=== PATIENT | female | born 1980 | race Caucasian/White ===

== ENCOUNTER 2021-04-24 20:36 | Emergency (ER) | payer BC, SELFPAY ==
[2021-04-24 20:56] VITALS: BP 146/101; PULSE 88; RESP 15; TEMP 36.9; O2SAT 98; BMI 31.2
--- NOTE | 2021-04-24 21:24 | W.ED.PSYCH ---
HPI - Psych General: Chief Complaint: Psychiatric Symptoms Stated Complaint: Anxiety Time Seen by Provider: 04/24/21 21:04 Source: patient Limitations: no limitations History of Present Illness: HPI Narrative: 40-year-old female comes in today with complaints of mental distress and paranoia. Patient at this time states that she is fighting with her boyfriend. Patient denies any abuse from her boyfriend. Patient reports that she feels that her boyfriend is watching her and threatening her all the time. When patient tries to talk to her boyfriend he walks away and does not discuss it with her. Patient reports that she sees things on the Internet that seems to always point back towards her boyfriend and believes her may be a conspiracy against her. I discussed this with her that she may feel threatened by him and she is needing to leave the relationship. Patient states that she cannot leave the relationship that he is all that she has but feels that she needs mental health because she does not believe that he can do all these things that she is seeing. Patient does appear to be paranoid and delusional. Patient is seeking admission into the stress unit. Patient smokes cigarettes, patient reports that she does not use any drugs or alcohol. complaint: other (paranoia) Onset (ago): day(s) Duration: constant and getting worse History of same: No Relieving factors: none Exacerbating factors: none Context: not taking psychiatric medications Associated psychiatric symptoms: delusions Associated symptoms: Reports visual hallucinations Review of Systems General: Reports: 10 or more systems reviewed and unremarkable except in HPI and below Psych: Reports: visual hallucinations Physical Exam Const: COMMON NORMALS: no acute distress and patient oriented x3 GENERAL APPEARANCE: cooperative HENMT: COMMON NORMALS: normocephalic and Normal external nose present HEAD & SCALP: normal to inspection and normocephalic NOSE: Normal external nose present MOUTH: Normal oral and palatal mucosa present Eye: GENERAL EYE: appearance normal, both eyes and all related structures Neck/C-Spine: COMMON NORMALS: full ROM Lymph: LYMPHATIC: no lymphadenopathy noted Chest: COMMONS NORMALS: normal inspection of the chest Resp: COMMON NORMALS: normal respiratory effort EFFORT & INSPECTION: Yes able to speak in complete sentences Cardio: COMMON NORMALS: regular rate and regular rhythm RATE: regular rate RHYTHM: regular rhythm GI: COMMON NORMALS: non-tender Back/Pelvis: COMMON NORMALS: thoracic and lumbar spine normal to inspection Extremity: COMMON NORMALS: normal to inspection Neuro: COMMON NORMALS: patient oriented x3 and moves all extremities Psych: COMMON NORMALS: mental status grossly normal and cooperative Skin: COMMON NORMALS: no rashes or lesions noted GENERAL SKIN EXAM: no rashes or lesions noted Course Vital Signs: Vital signs: Vital Signs Temperature 98.4 F 04/24/21 20:56 Pulse Rate 88 04/24/21 20:56 Respiratory Rate 15 04/24/21 20:56 Blood Pressure 146/101 04/24/21 20:56 Pulse Oximetry 98 04/24/21 20:56 MDM - Psych MDM Narrative: Medical decision making narrative: Patient came in today for concerns of paranoia. Patient felt her boyfriend was doing something to intentionally confuse her and make her feel threatened. Exam noted some anxiety and restlessness. On questioning patient denied any drug use. Vital signs are normal. Physical exam was unremarkable. Differential diagnosis includes not limited to acute psychosis, paranoia, substance abuse. Laboratory values were unremarkable. Urine drug screen did show positive for amphetamines. When discussed this with patient she did not deny the use of amphetamines. We did offer to admit patient for her concerns but she decided that she did not want to stay and had found a ride away from her boyfriend. Patient was recommended to follow-up with primary care and to return to the ER as needed. Lab Data: Labs: Lab Results 04/24/21 04/24/21 04/24/21 Range/Units 22:00 22:00 22:00 WBC 9.4 (4.0-10.0) 10^3/ uL RBC 4.97 (4.1-5.3) 10^6/u L Hgb 15.1 (11.5-15.3) g/dL Hct 45.9 (37.0-47.0) % MCV 92.4 (81-99) fL MCH 30.4 (28.0-34.0) pg MCHC 32.9 (30.0-36.0) g/dL RDW 12.7 (12.1-15.1) % Plt Count 319 (130-400) 10^3/c mm MPV 10.3 (7.4-10.4) fL Neut % (Auto) 74.9 % Lymph % (Auto) 18.6 % [place] % (Auto) 5.6 % Eos % (Auto) 0.3 % Baso % (Auto) 0.3 % Neut # (Auto) 7.06 (1.8-7.7) 10^3/u L Lymph # (Auto) 1.8 (0.8-4.8) 10^3/u L [place] # (Auto) 0.5 (0.2-0.9) 10^3/u L Eos # (Auto) 0.0 (0.0-0.8) 10^3/u L Baso # (Auto) 0.0 (0.0-0.1) 10^3/u L Nucleated RBC % (a uto) 0 % Nucleated RBCs # 0.0 /100WBC Sodium 136 (136-145) mmol/L Chloride 101 (98-107) mmol/L Carbon Dioxide 22 (22-29) mmol/L BUN 14 (6-20) mg/dL Creatinine 0.8 (0.5-0.9) mg/dL Glucose 91 (65-115) mg/dL Calcium 8.7 (8.5-10.5) mg/dL Total Bilirubin 0.3 (0.15-1.2) mg/dL Alkaline Phosphata se 80 (35-105) IU/L Total Protein 7.5 (6.6-8.7) g/dL Albumin 4.9 (3.5-5.2) g/dL Globulin 2.6 (1.3-4.6) g/dL TSH 1.71 (0.27-4.20) uIU/ mL HCG, Qual Negative (Negative) Urine Color (Yellow) Urine Appearance (CLEAR) Urine pH (5-7) Ur Specific Gravit y (1.005-1.030) Urine Protein (Negative) Urine Glucose (UA) (Normal) Urine Ketones (Negative) Urine Blood (Negative) Urine Nitrate (Negative) Urine Bilirubin (Negative) Urine Urobilinogen (Negative) mg/dL Ur Leukocyte Yoselyn ase (Negative) Urine RBC (0-2) /hpf Urine WBC (0-5) /hpf Ur Squamous Epith Cells (0-5) /hpf Amorphous Sediment /hpf Urine Bacteria (NONE) /hpf Urine Opiates Scre en (Negative) ng/mL Ur Barbiturates Sc reen (Negative) ng/mL Ur Phencyclidine S crn (Negative) ng/mL Ur Amphetamines Sc reen (Negative) ng/mL U Benzodiazepines Scrn (Negative) ng/mL Urine Cocaine Scre en (Negative) ng/mL U Marijuana (THC) Screen (Negative) ng/mL 04/24/21 04/24/21 Range/Units 22:00 22:00 WBC (4.0-10.0) 10^3/ uL RBC (4.1-5.3) 10^6/u L Hgb (11.5-15.3) g/dL Hct (37.0-47.0) % MCV (81-99) fL MCH (28.0-34.0) pg MCHC (30.0-36.0) g/dL RDW (12.1-15.1) % Plt Count (130-400) 10^3/c mm MPV (7.4-10.4) fL Neut % (Auto) % Lymph % (Auto) % [place] % (Auto) % Eos % (Auto) % Baso % (Auto) % Neut # (Auto) (1.8-7.7) 10^3/u L Lymph # (Auto) (0.8-4.8) 10^3/u L [place] # (Auto) (0.2-0.9) 10^3/u L Eos # (Auto) (0.0-0.8) 10^3/u L Baso # (Auto) (0.0-0.1) 10^3/u L Nucleated RBC % (a uto) % Nucleated RBCs # /100WBC Sodium (136-145) mmol/L Chloride (98-107) mmol/L Carbon Dioxide (22-29) mmol/L BUN (6-20) mg/dL Creatinine (0.5-0.9) mg/dL Glucose (65-115) mg/dL Calcium (8.5-10.5) mg/dL Total Bilirubin (0.15-1.2) mg/dL Alkaline Phosphata se (35-105) IU/L Total Protein (6.6-8.7) g/dL Albumin (3.5-5.2) g/dL Globulin (1.3-4.6) g/dL TSH (0.27-4.20) uIU/ mL HCG, Qual (Negative) Urine Color Yellow (Yellow) Urine Appearance Sl cloudy A (CLEAR) Urine pH 5 (5-7) Ur Specific Gravit y 1.030 (1.005-1.030) Urine Protein Neg (Negative) Urine Glucose (UA) Norm (Normal) Urine Ketones Negative (Negative) Urine Blood Neg (Negative) Urine Nitrate Positive H (Negative) Urine Bilirubin 1+ H (Negative) Urine Urobilinogen Norm (Negative) mg/dL Ur Leukocyte Yoselyn ase 2+ H (Negative) Urine RBC 0-4 H (0-2) /hpf Urine WBC >100 H (0-5) /hpf Ur Squamous Epith Cells 5-10 H (0-5) /hpf Amorphous Sediment 1+ /hpf Urine Bacteria 2+ H (NONE) /hpf Urine Opiates Scre en Negative (Negative) ng/mL Ur Barbiturates Sc reen Negative (Negative) ng/mL Ur Phencyclidine S crn Negative (Negative) ng/mL Ur Amphetamines Sc reen Positive H (Negative) ng/mL U Benzodiazepines Scrn Negative (Negative) ng/mL Urine Cocaine Scre en Negative (Negative) ng/mL U Marijuana (THC) Screen Negative (Negative) ng/mL Discharge Plan Discharge Patient Disposition: Home Clinical Impression: Paranoia, Amphetamine abuse Condition: Stable Discharge Orders: Discharge ED (Routine); Ordered 04/24/21 Ordered By: Sammy Mario Discharge Diet: Usual diet Discharge Activity: Increase activity as tolerated Patient Instructions: Methamphetamine Abuse (ED), Opioid Safety Activity Restrictions/Additional Instructions: Healthy diet and exercise. Follow-up with primary care. Return to the ER for new concerns. 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
[2021-04-24 22:19] LABS: Basophils % 0.3 %; Eosinophils % 0.3 %; Hematocrit 45.9 % (37.0-47.0); Hemoglobin 15.1 g/dL (11.5-15.3); Lymphocytes # 1.8 10^3/uL (0.8-4.8); Lymphocytes % 18.6 %; Mean Corpuscular HGB Conc 32.9 g/dL (30.0-36.0); Mean Corpuscular Hemoglobin 30.4 pg (28.0-34.0); Mean Corpuscular Volume 92.4 fL (81-99); Mean Platelet Volume 10.3 fL (7.4-10.4); Monocytes # 0.5 10^3/uL (0.2-0.9); Monocytes % 5.6 %; Neutrophils # 7.06 10^3/uL (1.8-7.7); Neutrophils % 74.9 %; Nucleated Red Blood Cells % 0 %; Platelet Count 319 10^3/cmm (130-400); Red Blood Count 4.97 10^6/uL (4.1-5.3); Red Cell Distribution Width 12.7 % (12.1-15.1); White Blood Count 9.4 10^3/uL (4.0-10.0)
[2021-04-24 22:20] LABS: HCG Qualitative Urine. Negative (Negative)
[2021-04-24 22:36] LABS: Amphetamines Screen Urine Positive (Negative); Barbiturates Screen Urine Negative (Negative); Benzodiazepines Screen Urine Negative (Negative); Cocaine Screen Urine Negative (Negative); Opiate Screen Urine Negative (Negative); PCP Screen Urine Negative (Negative); THC Screen Urine Negative (Negative)
[2021-04-24 22:47] LABS: Add Urine Microscopic? YES; Bilirubin Urine 1+ (Negative); Blood Urine Neg (Negative); Glucose Urine UA Norm (Normal); Ketones Urine Negative (Negative); Leukocyte Esterase Urine 2+ (Negative); Nitrate Urine Positive (Negative); Protein Urine Neg (Negative); Urine Color Yellow (Yellow); Urobilinogen Urine Norm (Negative); pH Urine 5 (5-7)
[2021-04-24 22:48] LABS: Albumin Level 4.9 g/dL (3.5-5.2); Alkaline Phosphatase 80 IU/L (35-105); Bacteria Urine 2+ /hpf; Blood Urea Nitrogen 14 mg/dL (6-20); Calcium 8.7 mg/dL (8.5-10.5); Carbon Dioxide 22 mmol/L (22-29); Chloride 101 mmol/L (98-107); Globulin 2.6 g/dL (1.3-4.6); Glucose 91 mg/dL (65-115); Osmolality Calculated 282 mOsm/kg (285-295); RBC Urine 0-4 /hpf (0-2); Sodium 136 mmol/L (136-145); Thyroid Stimulating Hormone 1.71 uIU/mL (0.27-4.20); Total Bilirubin 0.3 mg/dL (0.15-1.2); Total Protein 7.5 g/dL (6.6-8.7); WBC Urine >100 /hpf (0-5)
[2021-04-24 22:49] LABS: Add Urine Culture? Yes; Amorphous Sediment Urine 1+ /hpf
[2021-04-24 22:54] LABS: Acetaminophen < 5.0 ug/mL (10-30); Alanine Aminotransferase 12 U/L (0-33); Alcohol Level < 10 mg/dL (0-10); Anion Gap 17.3 (5-19); Aspartate Amino Transferase 17 U/L (0-32); Potassium 4.3 mmol/L (3.5-5.1); Salicylate < 0.3 mg/dL (3-10)
[2021-04-24 23:08] VITALS: BP 138/76; PULSE 76; RESP 18; O2SAT 99
[2021-04-24 23:14] VITALS: BP 137/111; PULSE 90; RESP 16; TEMP 36.7; O2SAT 100
== END 2021-04-24 23:20 | disposition home or self-care (01) ==
PROVIDERS: Emergency Provider Nurse Practitioner Family
DX: F22 Delusional disorders (principal); F15.10 Other stimulant abuse, uncomplicated
CPT/HCPCS: 80053; 80306; 80307; 81001; 81025; 84443; 85025; 87077; 87086; 87186; 99282

== ENCOUNTER 2021-04-27 05:43 | Emergency (ER) | payer BC, MEDICAID, SELFPAY ==
[2021-04-27 05:45] VITALS: BP 166/110; PULSE 85; RESP 17; O2SAT 97; BMI 30.2
--- NOTE | 2021-04-27 06:11 | ED_ITS ---
HPI - Psych General: Chief Complaint: Psychiatric Symptoms Stated Complaint: mhe Time Seen by Provider: 04/27/21 05:46 History of Present Illness: HPI Narrative: 40-year-old female presents emergency room via EMS. Evidently she had anoxic closet and a truck stop gas station overnight. She is convinced her boyfriend is spying on her through her phone and he is downloading things recording things making her see things that are not there. She is fixated on her boyfriend and cell phones. She talks about going through his phone trying to find things about Ms. spelled Internet addresses including Maldivian symbols on her phone. She makes some vague referen ce about her boyfriend telling her she did not have the courage to kill him. She denies any suicidal or homicidal ideation. MD complaint: other Onset (ago): hour(s) Duration: constant History of same: Yes Relieving factors: none Exacerbating factors: none Context: recent drug abuse Associated psychiatric symptoms: none Associated symptoms: Reports no associated symptoms Treatments prior to arrival: none Review of Systems Const: Denies: fever(s), chills, body aches, change in appetite, fatigue or malaise ENMT: Denies: throat pain, ear or mastoid pain, nasal discharge or nasal congestion Card: Denies: chest pain, edema, dyspnea on exertion or orthopnea Resp: Denies: dyspnea, productive cough or non-productive cough GI: Denies: abdominal pain, nausea, vomiting, hematemesis, coffee ground emesis, diarrhea, constipation, bloating, hematochezia or melena : Denies: flank pain, difficulty voiding, dysuria, urinary frequency or urinary urgency Skin/Breast: Denies: rash or pruritus Physical Exam Const: COMMON NORMALS: no acute distress GENERAL APPEARANCE: cooperative and comfortable ORIENTATION/CONSCIOUSNESS: Yes awake, Yes oriented to person, Yes oriented to place and Yes oriented to time HENMT: COMMON NORMALS: normocephalic, atraumatic, hearing grossly normal bilaterally and external ears normal HEAD & SCALP: normocephalic and atraumatic EXTERNAL EAR: Yes external ears normal Neck/C-Spine: COMMON NORMALS: no JVD Resp: COMMON NORMALS: normal respiratory effort, No retractions, No use of accessory muscles and clear to auscultation bilaterally AUSCULTATION: clear to auscultation bilaterally Cardio: COMMON NORMALS: no JVD, regular rate, regular rhythm and No murmurs present (Cardio) RATE: regular rate RHYTHM: regular rhythm GI: COMMON NORMALS: Soft to palpation and No hepatosplenomegaly present AUSCULTATION: Yes normoactive bowel sounds PALPATION: Yes Soft to palpation, No Tenderness to palpation present (GI), No Guarding due to palpation present (GI) and Yes No hepatosplenomegaly present Extremity: COMMON NORMALS: normal to inspection, capillary refill normal, no clubbing, cyanosis or edema, no calf tenderness and no pedal edema Neuro: SENSORIUM/ORIENTATION: Yes oriented to person, Yes oriented to place and Yes oriented to time Skin: COMMON NORMALS: no rashes or lesions noted GENERAL SKIN EXAM: no rashes or lesions noted Course Vital Signs: Vital signs: Vital Signs Pulse Rate 80 04/27/21 08:23 Respiratory Rate 17 04/27/21 05:45 Blood Pressure 135/100 04/27/21 08:23 Pulse Oximetry 99 04/27/21 08:23 MDM - Psych MDM Narrative: Medical decision making narrative: Still no suicidal homicidal ideation. She has some paranoid type issues with her boyfriend which I think are probably induced by her methamphetamine use she did admit to using yesterday. We will get a go ahead and discharge her we will set her up for referral to [facility]. She continues to deny any suicidal homicidal ideation she is not having having any active psychosis at this time. Lab Data: Labs: Lab Results 04/27/21 04/27/21 04/27/21 Range/Units 06:20 06:20 07:25 WBC 6.2 (4.0-10.0) 10^3/ uL RBC 4.88 (4.1-5.3) 10^6/u L Hgb 14.9 (11.5-15.3) g/dL Hct 45.5 (37.0-47.0) % MCV 93.2 (81-99) fL MCH 30.5 (28.0-34.0) pg MCHC 32.7 (30.0-36.0) g/dL RDW 12.6 (12.1-15.1) % Plt Count 269 (130-400) 10^3/c mm MPV 9.6 (7.4-10.4) fL Neut % (Auto) 62.5 % Lymph % (Auto) 28.9 % [place] % (Auto) 7.0 % Eos % (Auto) 0.8 % Baso % (Auto) 0.5 % Neut # (Auto) 3.85 (1.8-7.7) 10^3/u L Lymph # (Auto) 1.8 (0.8-4.8) 10^3/u L [place] # (Auto) 0.4 (0.2-0.9) 10^3/u L Eos # (Auto) 0.1 (0.0-0.8) 10^3/u L Baso # (Auto) 0.0 (0.0-0.1) 10^3/u L Nucleated RBC % (a uto) 0 % Nucleated RBCs # 0.0 /100WBC Sodium 135 L (136-145) mmol/L Potassium 3.5 (3.5-5.1) mmol/L Chloride 100 (98-107) mmol/L Carbon Dioxide 23 (22-29) mmol/L Anion Gap 15.5 (5-19) BUN 12 (6-20) mg/dL Creatinine 0.7 (0.5-0.9) mg/dL GFR Calculation 92.2 (90-130) mL/min Glucose 91 (65-115) mg/dL Calculated Osmolal ity 279 L (285-295) mOsm/k g Calcium 8.8 (8.5-10.5) mg/dL Total Bilirubin 0.5 (0.15-1.2) mg/dL AST 15 (0-32) U/L ALT 11 (0-33) U/L Alkaline Phosphata se 72 (35-105) IU/L Total Protein 7.6 (6.6-8.7) g/dL Albumin 4.2 (3.5-5.2) g/dL Globulin 3.4 (1.3-4.6) g/dL HCG, Qual Negative (Negative) Salicylates < 0.3 L (3-10) mg/dL Urine Opiates Scre en (Negative) ng/mL Acetaminophen < 5.0 L (10-30) ug/mL Ur Barbiturates Sc reen (Negative) ng/mL Ur Phencyclidine S crn (Negative) ng/mL Ur Amphetamines Sc reen (Negative) ng/mL U Benzodiazepines Scrn (Negative) ng/mL Urine Cocaine Scre en (Negative) ng/mL U Marijuana (THC) Screen (Negative) ng/mL 04/27/21 Range/Units 07:25 WBC (4.0-10.0) 10^3/ uL RBC (4.1-5.3) 10^6/u L Hgb (11.5-15.3) g/dL Hct (37.0-47.0) % MCV (81-99) fL MCH (28.0-34.0) pg MCHC (30.0-36.0) g/dL RDW (12.1-15.1) % Plt Count (130-400) 10^3/c mm MPV (7.4-10.4) fL Neut % (Auto) % Lymph % (Auto) % [place] % (Auto) % Eos % (Auto) % Baso % (Auto) % Neut # (Auto) (1.8-7.7) 10^3/u L Lymph # (Auto) (0.8-4.8) 10^3/u L [place] # (Auto) (0.2-0.9) 10^3/u L Eos # (Auto) (0.0-0.8) 10^3/u L Baso # (Auto) (0.0-0.1) 10^3/u L Nucleated RBC % (a uto) % Nucleated RBCs # /100WBC Sodium (136-145) mmol/L Potassium (3.5-5.1) mmol/L Chloride (98-107) mmol/L Carbon Dioxide (22-29) mmol/L Anion Gap (5-19) BUN (6-20) mg/dL Creatinine (0.5-0.9) mg/dL GFR Calculation (90-130) mL/min Glucose (65-115) mg/dL Calculated Osmolal ity (285-295) mOsm/k g Calcium (8.5-10.5) mg/dL Total Bilirubin (0.15-1.2) mg/dL AST (0-32) U/L ALT (0-33) U/L Alkaline Phosphata se (35-105) IU/L Total Protein (6.6-8.7) g/dL Albumin (3.5-5.2) g/dL Globulin (1.3-4.6) g/dL HCG, Qual (Negative) Salicylates (3-10) mg/dL Urine Opiates Scre en Negative (Negative) ng/mL Acetaminophen (10-30) ug/mL Ur Barbiturates Sc reen Negative (Negative) ng/mL Ur Phencyclidine S crn Negative (Negative) ng/mL Ur Amphetamines Sc reen Positive H (Negative) ng/mL U Benzodiazepines Scrn Negative (Negative) ng/mL Urine Cocaine Scre en Negative (Negative) ng/mL U Marijuana (THC) Screen Negative (Negative) ng/mL Discharge Plan Discharge Patient Disposition: Home Clinical Impression: Amphetamine abuse, Paranoia Condition: Stable Prescriptions: No Action No Known Home Medications RF: 0 Discharge Orders: Discharge ED (Routine); Ordered 04/27/21 Ordered By: Murali Marion Discharge Diet: Usual diet Discharge Activity: Increase activity as tolerated Patient Instructions: Opioid Safety Activity Restrictions/Additional Instructions: Case management will supply contact information for [facility] Coding Level of Care Code ED Program Paraprofessional for Estuardo Fwd Exam Comprehensive
[2021-04-27 06:23] LABS: Basophils % 0.5 %; Eosinophils # 0.1 10^3/uL (0.0-0.8); Eosinophils % 0.8 %; Hematocrit 45.5 % (37.0-47.0); Hemoglobin 14.9 g/dL (11.5-15.3); Lymphocytes # 1.8 10^3/uL (0.8-4.8); Lymphocytes % 28.9 %; Mean Corpuscular HGB Conc 32.7 g/dL (30.0-36.0); Mean Corpuscular Hemoglobin 30.5 pg (28.0-34.0); Mean Corpuscular Volume 93.2 fL (81-99); Mean Platelet Volume 9.6 fL (7.4-10.4); Monocytes # 0.4 10^3/uL (0.2-0.9); Neutrophils # 3.85 10^3/uL (1.8-7.7); Neutrophils % 62.5 %; Nucleated Red Blood Cells % 0 %; Platelet Count 269 10^3/cmm (130-400); Red Blood Count 4.88 10^6/uL (4.1-5.3); Red Cell Distribution Width 12.6 % (12.1-15.1); White Blood Count 6.2 10^3/uL (4.0-10.0)
[2021-04-27 06:39] LABS: Alanine Aminotransferase 11 U/L (0-33); Albumin Level 4.2 g/dL (3.5-5.2); Alkaline Phosphatase 72 IU/L (35-105); Anion Gap 15.5 (5-19); Aspartate Amino Transferase 15 U/L (0-32); Blood Urea Nitrogen 12 mg/dL (6-20); Calcium 8.8 mg/dL (8.5-10.5); Carbon Dioxide 23 mmol/L (22-29); Chloride 100 mmol/L (98-107); Globulin 3.4 g/dL (1.3-4.6); Glomerular Filtration Rate 92.2 mL/min (90-130); Glucose 91 mg/dL (65-115); Osmolality Calculated 279 mOsm/kg (285-295); Potassium 3.5 mmol/L (3.5-5.1); Sodium 135 mmol/L (136-145); Total Bilirubin 0.5 mg/dL (0.15-1.2); Total Protein 7.6 g/dL (6.6-8.7)
[2021-04-27 06:44] LABS: Acetaminophen < 5.0 ug/mL (10-30); Salicylate < 0.3 mg/dL (3-10)
[2021-04-27 07:52] LABS: HCG Qualitative Urine. Negative (Negative)
[2021-04-27 07:59] LABS: Amphetamines Screen Urine Positive (Negative); Barbiturates Screen Urine Negative (Negative); Benzodiazepines Screen Urine Negative (Negative); Cocaine Screen Urine Negative (Negative); Opiate Screen Urine Negative (Negative); PCP Screen Urine Negative (Negative); THC Screen Urine Negative (Negative)
[2021-04-27 08:23] VITALS: BP 135/100; PULSE 80; O2SAT 99
--- NOTE | 2021-04-27 09:25 | DCPLANNER ---
insurance manager had message to speak with patient about services at [facility]. insurance manager called phone number [phone], unable to speak with patient at this time, a voicemail was left for patient to return family caseworker phone call.
== END 2021-04-27 08:25 | disposition home or self-care (01) ==
PROVIDERS: Emergency Medicine; Emergency Provider Family Medicine
DX: F15.10 Other stimulant abuse, uncomplicated (principal); F22 Delusional disorders
CPT/HCPCS: 80053; 80306; 80307; 81025; 85025; 99283

== ENCOUNTER 2021-04-28 00:35 | Inpatient (IN) | payer BC, MEDICAID, SELFPAY ==
[2021-04-28 00:37] VITALS: BP 151/107; PULSE 93; RESP 17; TEMP 36.7; O2SAT 100; BMI 30.2
--- NOTE | 2021-04-28 00:59 | W.ED.PSYCH ---
HPI - Psych General: Chief Complaint: Psychiatric Symptoms Stated Complaint: PARANOID Time Seen by Provider: 04/28/21 00:45 History of Present Illness: HPI Narrative: Patient states she did not feel safe around her boyfriend states that she needs help that there is things going on her mind that she cannot control and she need to be admitted to the hospital. She cannot make an outpatient therapy appointment. Patient states she is suicidal. Patient does not have a plan. Patient has been seen here twice recently for symptoms of paranoia. complaint: suicidal ideation Onset (ago): day(s) Duration: constant and getting worse History of same: No Relieving factors: none Exacerbating factors: drug use Context: recent drug abuse (It has been a week and a half since she has done meth) Associated psychiatric symptoms: suicidal ideation Associated symptoms: Reports suicidal ideation (States that she wants to kill herself she cannot go on like this); Deny depression If self harm: admits thoughts of self harm Review of Systems Const: Denies: fever(s), chills or body aches Eyes: Denies: change in vision or blurry vision ENMT: Denies: throat pain or nasal congestion Card: Denies: chest pain or dyspnea on exertion Resp: Denies: dyspnea, productive cough or non-productive cough GI: Denies: abdominal pain, nausea or vomiting Musc: Denies: extremity pain Skin/Breast: Denies: rash Neuro: Denies: headache(s) Psych: Reports: anxiety (Patient does appear paranoid), paranoia (His boyfriend is hacking her phone. Has had 2 visits for this) and suicidal ideation (States that she wants to kill herself she cannot go on like this); Denies: depression Ad/Lymph: Denies: easy bruising Physical Exam Const: COMMON NORMALS: no acute distress, average body habitus and patient oriented x3 GENERAL APPEARANCE: well kempt HENMT: COMMON NORMALS: normocephalic HEAD & SCALP: normal to inspection and normocephalic FACE & SINUS: normal facial exam Eye: COMMON NORMALS: conjunctivae normal GENERAL EYE: appearance normal, both eyes and all related structures CONJUNCTIVA: Yes conjunctivae normal Neck/C-Spine: COMMON NORMALS: no JVD Chest: COMMONS NORMALS: normal inspection of the chest Resp: COMMON NORMALS: normal respiratory effort and clear to auscultation bilaterally AUSCULTATION: clear to auscultation bilaterally Cardio: COMMON NORMALS: no JVD, regular rate and regular rhythm RATE: regular rate RHYTHM: regular rhythm GI: COMMON NORMALS: Normal to inspection, nondistended, normoactive bowel sounds present Extremity: COMMON NORMALS: normal to inspection and full ROM Neuro: COMMON NORMALS: patient oriented x3 Psych: COMMON NORMALS: mental status grossly normal and speech normal APPEARANCE: Yes well kempt ATTITUDE: Yes paranoid (Patient states that boyfriend is trying to hack into her phone or has hacke) ACTIVITY/MOTOR BEHAVIOR: Yes appropriate eye contact SPEECH: Yes normal speech MOOD & AFFECT: Yes anxious THOUGHT CONTENT: Yes Suicidality present ATTENTION/CONCENTRATION: Yes attention grossly intact MEMORY/COGNITION: Yes memory grossly intact INSIGHT: Fair insight present (Psych) JUDGEMENT: Fair judgement present (Psych) Course Vital Signs: Vital signs: Vital Signs Temperature 98.1 F 04/28/21 00:37 Pulse Rate 93 04/28/21 00:37 Respiratory Rate 17 04/28/21 00:37 Blood Pressure 151/107 04/28/21 00:37 Pulse Oximetry 100 04/28/21 00:37 MDM - Psych MDM Narrative: Medical decision making narrative: I spoke with Dr. Rush he agrees accept the patient for admission Discharge Plan Discharge Patient Disposition: Admitted As Inpatient Admit Provider: Mayda Rush Clinical Impression: Amphetamine abuse, Acute psychosis, Suicidal ideation Condition: Stable Coding Level of Care Code ED News Clipping Cutter for Chg Fwd Exam Comprehensive
[2021-04-28] MEDS: LORazepam 2 mg Tablet PO (01:06)
[2021-04-28 01:41] VITALS: BP 151/107; PULSE 71; RESP 17; TEMP 36.7; O2SAT 100
[2021-04-28 01:46] VITALS: BP 151/107; PULSE 71; RESP 17; TEMP 36.7; O2SAT 100
[2021-04-28 01:47] VITALS: BP 118/83; PULSE 78; RESP 17; TEMP 36.6; O2SAT 94
--- NOTE | 2021-04-28 01:51 | PC.NURSE ---
New admit 131 bed 1 Lexus Egan Size large scrubs. 40/F SI/paranoid +Meth Patient states she did not feel safe around her boyfriend states that she needs help that there is things going on her mind that she cannot control and she need to be admitted to the hospital. She cannot make an outpatient therapy appointment. Patient states she is suicidal. Patient does not have a plan. Patient has been seen here twice recently for symptoms of paranoia. Paranoid, found in [employer] employee closet, hid from her controlling boyfriends friends who were mad at her. She spent several hours in the closet until found by employee, transported to ED via EMS. Lives with Boyfriend in [place], [place] [facility] [place] Went back to this man.
--- NOTE | 2021-04-28 01:52 | PC.NURSE ---
admission 131 bed 1 [employer] E[employer] Size large scrubs. 40/F SI/paranoid +Meth Given 2mg PO ativan prior to admission to unit. Patient states she did not feel safe around her boyfriend states that she needs help that there is things going on her mind that she cannot control and she need to be admitted to the hospital. She cannot make an outpatient therapy appointment. Patient states she is suicidal. Patient does not have a plan. Patient has been seen here twice recently for symptoms of paranoia. Pt found in [employer] employee closet, hid from her controlling boyfriends friends who were mad at her. She spent several hours in the closet until found by employee, transported to ED via EMS. Lives with Boyfriend in [place], [facility] [place] Went back to this man.
--- NOTE | 2021-04-28 02:06 | PC.NURSE ---
Poison SHAINA on right arm noted, rash from hand to elbow, from hiding in bushes and made contact, pt states, it does not itch right now, consideration for physician consult.
--- NOTE | 2021-04-28 10:56 | PM.NHP ---
Providers/Chief Complaint Admitting Physician: Mayda Rush DO Chief Complaint: PARANOID HPI NPU History of Present Illness Lexus Egan is a 40 year old female with remote history of being treated for depression at age 19 presented to the emergency department twice in the last few days with substance-induced psychotic symptoms most recently presenting with paranoia in the context of positive urine drug screen for amphetamines although she reports last use being greater then 72 hours ago continues to have a positive urine drug screen from amphetamines. She states that she had been using methamphetamine on a daily basis for several weeks prior to discontinuing a few days ago. Patient was also reportedly suicidal while she was in the emergency department but currently denying any suicidal ideation and denying any depressive symptoms. Patient continues to report ideas of reference saying that her boyfriend was putting things on her phone that were referring to arguments that they had had about various topics. Patient states that she had been having auditory and visual hallucinations but denies any current perceptual disturbances. Psychiatric review of systems is otherwise negative. Patient states that she has not been to any substance rehabilitation in many years but reports being interested in residential substance treatment. Review of Systems General: Reports: 10 or more systems reviewed and unremarkable except in HPI and below Meds NPU Home Medications Medication Instructions Recorded Confirmed Last Taken Type No Known Home Medications 04/27/21 04/28/21 Unknown History Allergies Allergy/AdvReac Type Severity Reaction Status Date / Time No Known Allergies Allergy Verified 04/28/21 01:54 [facility] NPU Other Psychiatric History: Other Psychiatric History: Reports being treated for depression by her primary care 20 years ago with an antidepressant with no subsequent use Denies any history of psychiatric hospitalization Denies any history of suicide attempt or self-harm behavior Mental Status Exam MSE Comments: Appears older than stated age, multiple tattoos on exposed skin, appropriately dressed in hospital scrubs, calm, cooperative, interactive, good eye contact Psychomotor activity is neither increased or decreased, no agitation Speech is normal rate and volume, spontaneous, clear articulation, not pressured I feel okay, tired, full range of affect, not labile Alert and oriented to person, place, time, situation Memory and concentration appear to be intact per interview Intellectual functioning appears to be average at best based on vocabulary, interview Thought process, linear, no flight of ideas, no looseness of associations Thought content, some overvalued ideas with paranoid theme, no delusions stated, does not appear to be attending to any internal stimuli, no suicidal or homicidal ideation Insight and judgment appear to be fair to intact Vitals/I&O/Wt Last Vital Signs Temp 97.9 F 04/28/21 01:47 Pulse 78 04/28/21 01:47 Resp 17 04/28/21 01:47 BP 118/83 04/28/21 01:47 Pulse Ox 94 04/28/21 01:47 Weight last 48 hrs Weight 72.575 kg A&P Assessment and plan (1) Amphetamine-induced psychotic disorder: Status: Acute Qualifiers: Complication of substance-induced condition: with delusions Qualified Code(s): F15.950 - Other stimulant use, unspecified with stimulant-induced psychotic disorder with delusions (2) Amphetamine abuse: Status: Acute (3) Suicidal ideation: Status: Acute Additional A&P Information Patient had presented to the emergency department a few days prior with amphetamine intoxication and most recently presenting now with reported suicidal ideation in the context of amphetamine intoxication with reports of psychotic symptoms in the context of ongoing, daily amphetamine use. Patient would benefit from observation with coordination for post discharge substance rehab. INVOLUNTARY ADMIT to inpatient psychiatry for observation for any persisting suicidal ideation or suicidal behavior Coordinate with clinical social work aide for post discharge substance rehabilitation Involuntary Hold Information 96 Hour Hold: 96 Hour Involuntary Admission: Yes 96 Hour Hold Ending Date: 05/04/21 96 Hour Hold Ending Time: 01:16 Attestations NPU Medical Necessity Statement*: Psychiatric hospitalization indicated for recent suicidal ideation and observation for any ongoing suicidal ideation or behavior, coordination for safe discharge Anticipate hospital stay to exceed 2 midnights Time Spent in Patient Care: Greater than 35 minutes (>than 50% of time spent in counselling and/or direct pt care on unit). 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
[2021-04-28 14:00] VITALS: BP 118/83; PULSE 78; RESP 17; TEMP 36.6; O2SAT 94
[2021-04-28 15:17] LABS: Urine Appearance Hazy (CLEAR); Urine Color Yellow (Yellow); pH Urine 7 (5-7)
[2021-04-28 15:18] LABS: Add Urine Microscopic? YES; Bilirubin Urine Neg (Negative); Blood Urine Neg (Negative); Glucose Urine UA Norm (Normal); Ketones Urine Negative (Negative); Leukocyte Esterase Urine 1+ (Negative); Nitrate Urine Negative (Negative); Protein Urine Neg (Negative); Specific Gravity, Urine 1.015 (1.005-1.030); Urobilinogen Urine Norm (Negative)
[2021-04-28 15:24] LABS: Add Urine Culture? Yes; Bacteria Urine 2+ /hpf; Squamous Epithelial Cell Urine 0-4 /hpf (0-5); WBC Urine 25-40 /hpf (0-5)
[2021-04-28 21:35] VITALS: BP 123/84; PULSE 87; RESP 18; TEMP 36.8; O2SAT 99
[2021-04-29 06:00] VITALS: BP 106/77; PULSE 80; RESP 16; TEMP 36.4; O2SAT 99
[2021-04-29] MEDS: citalopram 20 mg Tablet 10 MG PO (13:16)
[2021-04-29 13:24] LABS: Add Urine Microscopic? YES; Bilirubin Urine Neg (Negative); Blood Urine Neg (Negative); Glucose Urine UA Norm (Normal); Ketones Urine Negative (Negative); Leukocyte Esterase Urine 1+ (Negative); Nitrate Urine Negative (Negative); Protein Urine Neg (Negative); Urine Color Yellow (Yellow); Urobilinogen Urine Norm (Negative); pH Urine 6 (5-7)
[2021-04-29 13:33] LABS: Bacteria Urine 2+ /hpf; RBC Urine 0-4 /hpf (0-2); Squamous Epithelial Cell Urine 0-4 /hpf (0-5); WBC Urine >100 /hpf (0-5)
[2021-04-29 13:34] LABS: Urine Appearance Hazy (CLEAR)
[2021-04-29 13:35] LABS: Add Urine Culture? Yes
[2021-04-29 14:00] VITALS: BP 115/83; PULSE 83; RESP 18; TEMP 36.2; O2SAT 99
--- NOTE | 2021-04-29 14:08 | P.PN_ITS ---
Subjective NPU Subjective: Interval history: Patient reports some depressive symptoms and becomes tearful during interview stating that nobody wants me. She denies any suicidal ideation She denies any psychotic symptoms, denies any paranoid delusions per previous conversation Reports being compliant with medication and denies any medication side effects Discussed positive UA for UTI, she denies any hesitancy, any dysuria or hematuria Reports sleeping well and that her appetite is improving Mental Status Exam MSE Comments: Sitting on her bed, calm, cooperative, occasionally tearful, good eye contact, appropriately groomed in hospital scrubs Psychomotor activity is somewhat decreased, no agitation Speech is normal rate and volume, spontaneous, clear articulation, not pressured I feel that, full range of affect, occasionally tearful during interview, not labile Alert and oriented to person, place, time, situation Memory and concentration appear to be intact per interview Thought process, linear, no flight of ideas, no looseness of associations Thought content, no delusions, no hallucinations, no suicidal or homicidal ideation Insight and judgment appear to be fair to intact Vitals/I&O/Wt Last Vital Signs Temp 97.5 F L 04/29/21 06:00 Pulse 80 04/29/21 06:00 Resp 16 04/29/21 06:00 BP 106/77 04/29/21 06:00 Pulse Ox 99 04/29/21 06:00 Weight last 48 hrs Weight 72.575 kg Data NPU Micro: Microbiology 04/28/21 14:48 Urine Culture - Preliminary Urine,Clean Catch Staphylococcus aureus Microbiology 04/28/21 14:48 Urine,Clean Catch Urine Culture - Preliminary Staphylococcus aureus A&P Assessment and plan (1) Suicidal ideation: Status: Acute (2) Amphetamine-induced psychotic disorder: Status: Acute Qualifiers: Complication of substance-induced condition: with delusions Qualified Code(s): F15.950 - Other stimulant use, unspecified with stimulant-induced psychotic disorder with delusions (3) Depressive disorder: Status: Acute (4) Urinary tract infection: Status: Acute Additional A&P Information Emotionally labile, tearful, denies any urinary symptoms but has had 2 UAs with positive markers for UTI and would likely benefit from empirical treatment START Bactrim DS twice daily for 7 days for UTI START citalopram 10 mg daily targeting depressive symptoms Involuntary Hold Information 96 Hour Hold: 96 Hour Involuntary Admission: Yes 96 Hour Hold Ending Date: 05/04/21 96 Hour Hold Ending Time: 01:16 Attestations NPU Medical Necessity Statement*: Continues to require psychiatric hospitalization for medication stabilization Coding Level of Care Code Acute 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
[2021-04-29 14:16] VITALS: BMI 30.2
[2021-04-29] MEDS: hydrocortisone 1% cream 28 gm 1 APPLIC TOPICAL ×2 (14:24→21:49)
[2021-04-29] MEDS: sulfamethoxazole-trimeth DS 160-800 mg Tablet 1 TAB PO ×2 (14:24→21:49)
[2021-04-29] MEDS: diphenhydrAMINE 25 mg Capsule PO ×2 (14:24→21:49)
[2021-04-29 22:00] VITALS: BP 116/77; PULSE 73; RESP 16; TEMP 36.3; O2SAT 98
[2021-04-30 06:00] VITALS: BP 112/72; PULSE 78; RESP 17; TEMP 36.7; O2SAT 97
[2021-04-30] MEDS: sulfamethoxazole-trimeth DS 160-800 mg Tablet 1 TAB PO ×2 (09:00→21:21)
[2021-04-30] MEDS: citalopram 20 mg Tablet 10 MG PO (09:01)
--- NOTE | 2021-04-30 13:13 | P.PN_ITS ---
Subjective NPU Subjective: Interval history: Patient continues to have paranoid overvalued ideas about her boyfriend spying on her and watching her through her phone Reports intermittent mood symptoms, depressive symptoms but denies any interval suicidal ideation Patient reports her appetite has been good States that her sleep has been fair to good, feels rested Patient states that she feels frustrated about her current living situation and about her follow-up plans post discharge Mental Status Exam MSE Comments: Sitting on her bed, calm, cooperative, appropriately groomed in hospital scrubs, fair to good eye contact Psychomotor activity is somewhat decreased, no agitation Speech is normal rate and volume, spontaneous, clear articulation, not pressured Okay, full range of affect, not labile Alert and oriented to person, place, time, situation Memory and concentration appear to be intact per interview Thought process, linear, no flight of ideas, no looseness of associations Thought content, no delusions, no hallucinations, no suicidal or homicidal ideation Insight and judgment appear to be fair to intact Vitals/I&O/Wt Last Vital Signs Temp 98.0 F 04/30/21 06:00 Pulse 78 04/30/21 06:00 Resp 17 04/30/21 06:00 BP 112/72 04/30/21 06:00 Pulse Ox 97 04/30/21 06:00 Weight last 48 hrs Weight 72.575 kg Data NPU Micro: Microbiology 04/29/21 13:00 Urine Culture - Preliminary Urine,Clean Catch Staphylococcus aureus 04/28/21 14:48 Urine Culture - Final Urine,Clean Catch Staphylococcus aureus Microbiology 04/29/21 13:00 Urine,Clean Catch Urine Culture - Preliminary Staphylococcus aureus 04/28/21 14:48 Urine,Clean Catch Urine Culture - Final Staphylococcus aureus A&P Assessment and plan (1) Suicidal ideation: Status: Acute (2) Depressive disorder: Status: Acute (3) Amphetamine-induced psychotic disorder: Status: Acute Qualifiers: Complication of substance-induced condition: with delusions Qualified Code(s): F15.950 - Other stimulant use, unspecified with stimulant-induced psychotic disorder with delusions (4) Urinary tract infection: Status: Acute (5) Amphetamine abuse: Status: Acute Additional A&P Information Improving, continues to have paranoid ideation and concerns about returning home CONTINUE current medication, continue to monitor Involuntary Hold Information 96 Hour Hold: 96 Hour Involuntary Admission: Yes 96 Hour Hold Ending Date: 05/04/21 96 Hour Hold Ending Time: 01:16 Attestations NPU Medical Necessity Statement*: Continues to require psychiatric hospitalization for medication stabilization Coding Level of Care Code Acute 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
[2021-04-30 14:00] VITALS: BP 112/72; PULSE 78; RESP 17; TEMP 36.7; O2SAT 97
[2021-04-30] MEDS: hydrocortisone 1% cream 28 gm 1 APPLIC TOPICAL (14:17)
[2021-04-30 16:00] VITALS: BP 97/74; PULSE 80; RESP 18; TEMP 36.2; O2SAT 97
[2021-04-30 19:46] VITALS: BP 109/72; PULSE 85; RESP 17; TEMP 36.7; O2SAT 98
[2021-04-30] MEDS: diphenhydrAMINE 25 mg Capsule PO (21:25)
[2021-04-30] MEDS: trazodone 50 mg Tablet PO (21:25)
--- NOTE | 2021-04-30 21:30 | PC.NURSE ---
pt given benadryl 25 mg for itching of her poison sasha and trazodone 50mg po for sleep aide.
--- NOTE | 2021-05-01 03:56 | PC.NURSE ---
pt resting quietly with both eyes closed.
[2021-05-01 06:00] VITALS: BP 104/66; PULSE 87; RESP 18; TEMP 36.7; O2SAT 98
[2021-05-01] MEDS: sulfamethoxazole-trimeth DS 160-800 mg Tablet 1 TAB PO ×2 (09:10→20:31)
[2021-05-01] MEDS: citalopram 20 mg Tablet 10 MG PO (09:11)
--- NOTE | 2021-05-01 11:45 | P.PN_ITS ---
Subjective NPU Subjective: Interval history: Reports improvement in paranoia, currently denying any paranoid delusions, continues to have paranoid overvalued idea with regards to her phone Reports improved mood symptoms, intermittent depressive symptoms but denies any interval suicidal ideation Patient reports her appetite has been good States that her sleep has been fair to good, feels rested Mental Status Exam MSE Comments: Initially lying on her bed but eventually sitting up for interview, polite, interactive, good eye contact, appropriately groomed in hospital scrubs Psychomotor activity is neither increased nor decreased, no agitation Speech is normal rate and volume, spontaneous, clear articulation, not pressured Pretty good, full range of affect, not labile Alert and oriented to person, place, time, situation Memory and concentration appear to be intact per interview Thought process, linear, no flight of ideas, no looseness of associations Thought content, no delusions, no hallucinations, no suicidal or homicidal ideation Insight and judgment appear to be fair to intact Vitals/I&O/Wt Last Vital Signs Temp 98.0 F 05/01/21 06:00 Pulse 87 05/01/21 06:00 Resp 18 05/01/21 06:00 BP 104/66 05/01/21 06:00 Pulse Ox 98 05/01/21 06:00 Weight last 48 hrs Weight 72.575 kg Weight 72.575 kg Data NPU Micro: Microbiology 04/29/21 13:00 Urine Culture - Final Urine,Clean Catch Staphylococcus aureus 04/28/21 14:48 Urine Culture - Final Urine,Clean Catch Staphylococcus aureus Microbiology 04/29/21 13:00 Urine,Clean Catch Urine Culture - Final Staphylococcus aureus 04/28/21 14:48 Urine,Clean Catch Urine Culture - Final Staphylococcus aureus A&P Assessment and plan (1) Suicidal ideation: Status: Acute (2) Depressive disorder: Status: Acute (3) Amphetamine-induced psychotic disorder: Status: Acute Qualifiers: Complication of substance-induced condition: with delusions Qualified Code(s): F15.950 - Other stimulant use, unspecified with stimulant-induced psychotic disorder with delusions (4) Urinary tract infection: Status: Acute (5) Amphetamine abuse: Status: Acute Additional A&P Information Improving CONTINUE current medication, continue to monitor Coordinate with pediatric social worker for post discharge mental health care follow-up, substance counseling Involuntary Hold Information 96 Hour Hold: 96 Hour Involuntary Admission: Yes 96 Hour Hold Ending Date: 05/04/21 96 Hour Hold Ending Time: 01:16 Attestations NPU Medical Necessity Statement*: Continues to require psychiatric hospitalization for medication stabilization, coordination for safe discharge Coding Level of Care Code Acute Administrative Library 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
--- NOTE | 2021-05-01 12:10 | PC.NURSE ---
Addendum entered by Yari Kilgore RN 05/01/21 14:28: Patient currently resting. No signs of itching noted. Original Note: Patient up at nurses station requesting some benadryl for her itching. Benadryl administered.
[2021-05-01] MEDS: diphenhydrAMINE 25 mg Capsule PO ×2 (12:16→20:30)
[2021-05-01 13:47] VITALS: BP 104/66; PULSE 87; RESP 18; TEMP 37; O2SAT 98
[2021-05-01] MEDS: trazodone 50 mg Tablet PO (20:29)
[2021-05-01 20:57] VITALS: BP 111/80; PULSE 72; RESP 19; TEMP 36.6; O2SAT 98
--- NOTE | 2021-05-01 21:48 | PC.NURSE ---
Patient has systemic poison Dee. Has been taking Benadryl 25mg PO and topical Hydrocortisone cream. This treatment has been minimally effective in relieving her Itching and discomfort. Areas of raised blistering skin rash. Patient requesting Solumedrol dose pack or something to slow spreading and itching. Will call Dr Rush to request.
--- NOTE | 2021-05-01 22:20 | PC.NURSE ---
pt requested sleeping med to be given with HS scheduled med. Trazodone 50mg po given. Dr Rush contacted concerning pt s on going poison sasha not relieved by benadryl 25mg po. Order received to consult hospitalist, Dr Aranda ordered prednisone 40mg po one time. Order noted.
[2021-05-01] MEDS: predniSONE 20 mg Tablet 40 MG PO (22:42)
--- NOTE | 2021-05-01 22:57 | PC.NURSE ---
pt resting quietly with both eyes closed at this time.
[2021-05-02 06:00] VITALS: BP 105/69; PULSE 67; RESP 18; TEMP 37.5; O2SAT 97
--- NOTE | 2021-05-02 06:36 | PC.NURSE ---
Dr Aranda here to see pt. Pt noted with red raised/blistered rash on both upper extremities and both lower extremities, chest, abdomen, back and face. stated she would put orders in for oral steroid, topical steroid cream, and for calamine lotion.
--- NOTE | 2021-05-02 06:46 | PM.CONSULT ---
Providers/Reason For Consult Consulting Physician/Specialty*: Frase/Hospitalist Reason for Consult*: poison sasha Attending Physician: Mayda Rush DO History of Present Illness History of Present Illness Lexus Egan is a 40 year old female admitted to the Neuropsych Unit a few days ago. [facility] She has been having itching all over and developed a rash that is extremely pruritic and associated with multiple vesicles. She has been scratching quite a bit and spread the rash to both arms, both legs, her face and neck. On the face it primarily involves the lower lip. She has been getting Benadryl and hydroxyzine as well as hydrocortisone cream without significant clinical improvement in her symptoms. Hospitalist were consulted to assist with management of her symptoms. Review of Systems Const: Denies: fever(s) Eyes: Denies: eye discomfort ENMT: Denies: odynophagia Card: Denies: chest pain Resp: Denies: dyspnea Skin/Breast: Reports: rash, pruritus and erythema; Denies: skin pain Meds/Allergies Home Medications and Allergies Home Medications Medication Instructions Recorded Confirmed Last Taken Type No Known Home Medications 04/27/21 04/28/21 Unknown History Allergies Allergy/AdvReac Type Severity Reaction Status Date / Time No Known Allergies Allergy Verified 04/28/21 01:54 Current Medications Current Medications Generic Name Dose Route Start Last Admin Trade Name Freq PRN Reason Stop Dose Admin Citalopram Hydrobromide 10 mg 04/29/21 12:15 05/01/21 09:11 Citalopram 20 Mg Tablet PO 10 mg DAILY LANDRY Administration Diphenhydramine HCl 25 mg 04/29/21 13:54 05/01/21 20:30 Diphenhydramine 25 Mg Capsule PO 25 mg Q6H PRN Administration ITCHING Hydrocortisone 1 applic 04/29/21 13:48 04/30/21 14:17 Hydrocortisone 1% Cream 28 Gm TOPICAL 1 applic QID PRN Administration RASH Trimethoprim/Sulfamethoxazole 1 tab 04/29/21 21:00 05/01/21 20:31 Sulfamethoxazole-Trimeth Ds 160-800 Mg Tablet PO 1 tab 0900,2100 LANDRY Administration Protocol PFSH Acute PFSH: Social History (Updated 05/02/21 @ 06:52 by Clarissa Aranda MD) Additional social history: With me denies any tobacco alcohol or drug use Supplemental PFSH Information: Denies any significant past medical or surgical history Vitals/I&O/Wt Last Vital Signs Temp 99.5 F 05/02/21 06:00 Pulse 67 05/02/21 06:00 Resp 18 05/02/21 06:00 BP 105/69 05/02/21 06:00 Pulse Ox 97 05/02/21 06:00 Weight last 48 hrs Weight 72.575 kg Physical Exam Narrative: EXAM NARRATIVE: Constitutional: alseep, itching immediately upon awakening HEENT: Pupils are equally reactive, conjunctive not injected Neck: supple Respiratory: Clear lungs Cardiovascular: Regular rhythm Abdomen: soft Extremities: No pitting edema Skin: Erythematous maculopapular exanthem scattered throughout both upper extremities, lower extremities, chest. Areas on the arms in particular have vesicular formation and clusters. She has a small area on her face along the lower vermilion border on the right side. Not extend to the mucosal surfaces. She is constantly trying to scratch and requires frequent reminders. No areas of pus formation noted. No large vesicles. Neuro: moves all extremities Psych: Cooperative Data Micro: Micro: Microbiology 04/29/21 13:00 Urine Culture - Fi nal Urine,Clean Catch Staphylococcus aureus A&P Assessment and plan (1) Poison sasha dermatitis: Given oral dose of prednisone last evening Will give an IM injection of steroids both long and short acting coverage, add calamine lotion, continue topical steroids Patient was strongly encouraged to avoid scratching, explaining to her that doing so will just spread this other places and can lead to infection Can continue Benadryl or hydroxyzine orally to assist with pruritus We will need to monitor skin for secondary infection Appreciate consultation Status: Acute Consult Attestations Medical Necessity Statement: per npu attending Coding Level of Care Code Acute 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
[2021-05-02] MEDS: sulfamethoxazole-trimeth DS 160-800 mg Tablet 1 TAB PO (07:56)
[2021-05-02] MEDS: citalopram 20 mg Tablet 10 MG PO (07:57)
[2021-05-02] MEDS: betamethasone susp 6 mg/mL 5 mL IM (07:58)
[2021-05-02] MEDS: triamcinolone 40 mg/mL SDV 80 MG IM (08:00)
--- NOTE | 2021-05-02 09:53 | P.DS_ITS ---
Diagnoses at Discharge Discharge Diagnosis (1) Poison sasha dermatitis: Status: Acute (2) Amphetamine abuse: Status: Acute (3) Suicidal ideation: Status: Acute (4) Amphetamine-induced psychotic disorder: Status: Acute Qualifiers: Complication of substance-induced condition: with delusions Qualified Code(s): F15.950 - Other stimulant use, unspecified with stimulant-induced psychotic disorder with delusions (5) Depressive disorder: Status: Acute (6) Urinary tract infection: Status: Acute Reason for Visit Reason for Visit: PARANOID Hospital Course Hospital Course 40 year old female with remote history of being treated for depression at age 19 presented to the emergency department twice in the last few days with substance- induced psychotic symptoms most recently presenting with paranoia in the context of positive urine drug screen for amphetamines although she reports last use being greater then 72 hours ago continues to have a positive urine drug screen from amphetamines. She states that she had been using methamphetamine on a da reji basis for several weeks prior to discontinuing a few days ago. Patient was also reportedly suicidal while she was in the emergency department but currently denying any suicidal ideation and denying any depressive symptoms. Patient quickly noted resolution of her paranoia after admission and likely exacerbated or precipitated by her methamphetamine use. She also reported some depressive symptoms on started on citalopram 10 mg daily which she reported some relief with no reports of any medication side effects. Patient mostly staying in her room to her self but participated in unit milieu with no reports of any behavioral disturbances. Patient was reporting diffuse itching on part of her skin with noted vesicles; hospitalist was consulted and treated patient with short and long-acting steroid injections in addition to symptomatic care. Patient was not suicidal and did not reporting to psychotic symptoms at the time of discharge and did not appear to pose an imminent threat of harm to self or others. Patient was offered placement to a half-way and various other substance treatment programs which the patient refused and elected to leave with her boyfriend who she had previously been doing methamphetamine with. Low to moderate risk of harm to self given no current suicidal ideation and currently not endorsing any psychiatric symptoms although her risk will continue to be elevated if she continues to use methamphetamine or other substances and alcohol and continues to be noncompliant with treatment recommendations leading to unexpected, impulsive behavior. Risk mitigation included psychiatric hospitalization, medication stabilization, recommendation to abstain from use of substances and alcohol as well as the need for compliance with her medication, medication management and substance counseling/treatment follow-up. Patient was able to communicate her understanding of the need to abstain from the use of substances and alcohol as well as the need for compliance with her medication, medication management and substance counseling/therapy follow-up in order to further mitigate her risk of harm to self and others. Patient also communicated her need for follow-up for medication management as well as following evaluation of her rash. Involuntary Hold Information 96 Hour Hold: 96 Hour Involuntary Admission: Yes 96 Hour Hold Ending Date: 05/04/21 96 Hour Hold Ending Time: 01:16 Mental Status Exam MSE Comments: Lying in bed, calm, cooperative, good eye contact, appropriately groomed in hospital scrubs Psychomotor activity is neither increased nor decreased, no agitation Speech is normal rate and volume, spontaneous, clear articulation, not pressured I feel okay, full range of affect, not labile Alert and oriented to person, place, time, situation Memory and concentration appear to be intact per interview Thought process, linear, no flight of ideas, no looseness of associations Thought content, no delusions, no hallucinations, no suicidal or homicidal ideation Insight and judgment appear to be fair to intact Discharge Data Vitals: Last Vital Signs Temp 99.5 F 05/02/21 06:00 Pulse 67 05/02/21 06:00 Resp 18 05/02/21 06:00 BP 105/69 05/02/21 06:00 Pulse Ox 97 05/02/21 06:00 Discharge Plan Discharge Patient Disposition: Home Condition: Stable Prescriptions: New sulfamethoxazole-trimethoprim 800-160 mg Tablet 1 tab PO 0900,2100 Qty: 14 RF: 0 citalopram 20 mg Tablet 10 mg PO DAILY Qty: 30 RF: 0 No Action No Known Home Medications RF: 0 Discharge Orders: Discharge Order (Routine); Ordered 05/02/21 Ordered By: Mayda Rush Referrals: [facility] [Outside] [facility] [Outside] Tyshawn Echeverria MD [Physician] - 05/04/21 2:00 pm (Arrive 15 minutes early.) Discharge Diet: Regular Discharge Activity: Resume usual activity Patient Instructions: Opioid Safety Discharge Attestations NPU Time Spent in Discharge Care*: greater than 30 min Status at Discharge: Cognitive status at discharge: cognitively intact , Behavioral status at discharge: cooperative , Functional status at discharge: independent ambulation Overall status at discharge: patient is back to baseline Coding Level of Care Code Acute Chg FW DC note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 Amphetamine abuse F15.10 Suicidal ideation R45.851 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
[2021-05-02 10:23] VITALS: BP 105/69; PULSE 67; RESP 18; TEMP 37.5; O2SAT 97
--- NOTE | 2021-05-02 10:26 | PM.PN ---
Subjective Subjective: Interval history: Lexus reports she still itches quite a bit. Rash is still there. She received an injection of steroids yesterday. She also received some prednisone by mouth. Medications: Reviewed: Yes Vitals/I&O/Wt Last Vital Signs Temp 99.5 F 05/02/21 10:23 Pulse 67 05/02/21 10:23 Resp 18 05/02/21 10:23 BP 105/69 05/02/21 10:23 Pulse Ox 97 05/02/21 10:23 Weight last 48 hrs Weight 72.575 kg Physical Exam Narrative: EXAM NARRATIVE: General exam is no apparent distress Skin demonstrates erythematous raised areas consistent with contact dermatitis over her extremities, chest, face. Data Micro: Microbiology 04/29/21 13:00 Urine Culture - Final Urine,Clean Catch Staphylococcus aureus A&P Assessment and plan (1) Poison sasha dermatitis: Contact dermatitis. Received prednisone x1, 80 mg of Kenalog x1. Continue Benadryl as needed, hydrocortisone cream/Calamine We will sign off for now. Call with any questions or concerns. Status: Acute Attestations Medical Necessity Statement*: As per primary Coding Level of Care Code Acute [place] Machine Operator Helper for [facility]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
--- NOTE | 2021-05-02 12:55 | PC.NURSE ---
calamine lotion put on 1 application per pt request of her rash itching
[2021-05-02 14:00] VITALS: BP 120/80; PULSE 75; RESP 16; TEMP 37.7; O2SAT 97
== END 2021-05-02 18:46 | disposition home or self-care (01) | DRG 897 ==
LOC: ER 01:11 → NP 01:27
PROVIDERS: Admitting Provider Psychiatry & Neurology Psychiatry; Emergency Provider Nurse Practitioner Family; Visit Provider Psychiatry & Neurology Psychiatry
DX: F15.150 Other stimulant abuse with stimulant-induced psychotic disorder with delusions (principal); R45.851 Suicidal ideations; N39.0 Urinary tract infection, site not specified; F15.129 Other stimulant abuse with intoxication, unspecified; A49.01 Methicillin susceptible Staphylococcus aureus infection, unspecified site; F32.9 Major depressive disorder, single episode, unspecified; L23.7 Allergic contact dermatitis due to plants, except food
CPT/HCPCS: 81001; 87077; 87086; 87186; 96372; 99285; J0702; J3301; J7512

== ENCOUNTER 2021-06-09 11:12 | Inpatient (IN) | payer BC, SELFPAY ==
[2021-06-09 11:14] VITALS: BP 179/111; PULSE 94; RESP 18; TEMP 36.7; O2SAT 99; BMI 32.1
--- NOTE | 2021-06-09 11:59 | W.ED.PSYCH ---
HPI - Psych General: Chief Complaint: Psychiatric Symptoms Stated Complaint: BEHAVIORAL ISSUES/ PARANOID Time Seen by Provider: 06/09/21 11:15 History of Present Illness: HPI Narrative: 40-year-old female referred to the ER by [facility] with paranoid thoughts. She been living in the [facility]. Patient has been paranoid delusions. Patient believes someone has something on her phone. She also cites that someone is hacked her ability to buy things through the Internet and that this thing she orders are not really coming from where she orders but actually coming from where she orders (her description not mine). She is convinced that there are cameras everywhere watching her she is upset because they do not properly use alarms at the [facility] where she is staying. She reports she try to get away from some soft were somehow someone had bugged her phone by buying a new phone at [facility] [place] but it had a SIM card and when she got it so she was convinced that already compromised the phone when she bought it. She has been admitted in the past for similar paranoid delusions. MD complaint: other (Paranoid delusions) Onset (ago): unknown Duration: getting worse History of same: Yes Relieving factors: none Exacerbating factors: none Associated psychiatric symptoms: depression, racing thoughts, visual hallucinations and delusions Associated symptoms: Reports visual hallucinations, delusions and racing thoughts; Deny auditory hallucinations, depression, homicidal ideation or suicidal ideation Treatments prior to arrival: placed on mental health hold Review of Systems Const: Denies: fever(s), chills, body aches, change in appetite, fatigue or malaise ENMT: Denies: throat pain, ear or mastoid pain, nasal discharge or nasal congestion Card: Denies: chest pain, edema, dyspnea on exertion or orthopnea Resp: Denies: dyspnea, productive cough or non-productive cough GI: Denies: abdominal pain, nausea, vomiting, hematemesis, coffee ground emesis, diarrhea, constipation, bloating, hematochezia or melena : Denies: flank pain, difficulty voiding, dysuria, urinary frequency or urinary urgency Skin/Breast: Denies: rash or pruritus Psych: Reports: visual hallucinations; Denies: depression, auditory hallucinations, suicidal ideation or homicidal ideation PFS ED PFSH: Social History Additional social history: With me denies any tobacco alcohol or drug use Physical Exam Const: COMMON NORMALS: no acute distress GENERAL APPEARANCE: cooperative and comfortable ORIENTATION/CONSCIOUSNESS: Yes awake, Yes oriented to person, Yes oriented to place and Yes oriented to time HENMT: COMMON NORMALS: normocephalic, atraumatic and hearing grossly normal bilaterally HEAD & SCALP: normocephalic and atraumatic Neck/C-Spine: COMMON NORMALS: no JVD Resp: COMMON NORMALS: normal respiratory effort, No retractions, No use of accessory muscles and clear to auscultation bilaterally AUSCULTATION: clear to auscultation bilaterally Cardio: COMMON NORMALS: no JVD, regular rate, regular rhythm and No murmurs present (Cardio) RATE: regular rate RHYTHM: regular rhythm GI: COMMON NORMALS: Soft to palpation and No hepatosplenomegaly present AUSCULTATION: Yes normoactive bowel sounds PALPATION: Yes Soft to palpation, No Tenderness to palpation present (GI), No Guarding due to palpation present (GI) and Yes No hepatosplenomegaly present Extremity: COMMON NORMALS: normal to inspection, capillary refill normal, no clubbing, cyanosis or edema, no calf tenderness and no pedal edema Neuro: SENSORIUM/ORIENTATION: Yes oriented to person, Yes oriented to place and Yes oriented to time Psych: THOUGHT CONTENT: Yes delusions Skin: COMMON NORMALS: no rashes or lesions noted GENERAL SKIN EXAM: no rashes or lesions noted Course Vital Signs: Vital signs: Vital Signs Temperature 98.0 F 06/09/21 11:14 Pulse Rate 76 06/09/21 13:20 Respiratory Rate 20 H 06/09/21 13:20 Blood Pressure 149/108 06/09/21 13:20 Pulse Oximetry 97 06/09/21 13:20 MDM - Psych MDM Narrative: Medical decision making narrative: Patient has acute paranoid delusions. She is having some hallucinations mostly visual. Organ to go ahead and admit her discussed Dr. Khan will be placed on a 96-hour hold. History of similar presentation associated with methamphetamine use. Lab Data: Labs: Lab Results 06/09/21 06/09/21 06/09/21 Range/Units 12:39 12:39 13:17 WBC 9.0 (4.0-10.0) 10^3/ uL RBC 4.47 (4.1-5.3) 10^6/u L Hgb 13.9 (11.5-15.3) g/dL Hct 42.1 (37.0-47.0) % MCV 94.2 (81-99) fL MCH 31.1 (28.0-34.0) pg MCHC 33.0 (30.0-36.0) g/dL RDW 13.1 (12.1-15.1) % Plt Count 273 (130-400) 10^3/c mm MPV 9.8 (7.4-10.4) fL Neut % (Auto) 77.6 % Lymph % (Auto) 15.3 % [place] % (Auto) 6.2 % Eos % (Auto) 0.1 % Baso % (Auto) 0.2 % Neut # (Auto) 6.96 (1.8-7.7) 10^3/u L Lymph # (Auto) 1.4 (0.8-4.8) 10^3/u L [place] # (Auto) 0.6 (0.2-0.9) 10^3/u L Eos # (Auto) 0.0 (0.0-0.8) 10^3/u L Baso # (Auto) 0.0 (0.0-0.1) 10^3/u L Nucleated RBC % (a uto) 0 % Nucleated RBCs # 0.0 /100WBC Sodium 135 L (136-145) mmol/L Potassium 3.7 (3.5-5.1) mmol/L Chloride 101 (98-107) mmol/L Carbon Dioxide 23 (22-29) mmol/L Anion Gap 14.7 (5-19) BUN 12 (6-20) mg/dL Creatinine 0.8 (0.5-0.9) mg/dL GFR Calculation 79.0 L (90-130) mL/min Glucose 112 (65-115) mg/dL Calculated Osmolal ity 281 L (285-295) mOsm/k g Calcium 8.9 (8.5-10.5) mg/dL Total Bilirubin 0.4 (0.15-1.2) mg/dL AST 14 (0-32) U/L ALT 12 (0-33) U/L Alkaline Phosphata se 78 (35-105) IU/L Total Protein 6.8 (6.6-8.7) g/dL Albumin 4.4 (3.5-5.2) g/dL Globulin 2.4 (1.3-4.6) g/dL Urine Color Yellow (Yellow) Urine Appearance Clear (CLEAR) Urine pH 5 (5-7) Ur Specific Gravit y 1.025 (1.005-1.030) Urine Protein Neg (Negative) Urine Glucose (UA) Norm (Normal) Urine Ketones 1+ H (Negative) Urine Blood Neg (Negative) Urine Nitrate Negative (Negative) Urine Bilirubin 1+ H (Negative) Urine Urobilinogen Norm (Negative) mg/dL Ur Leukocyte Yoselyn ase Negative (Negative) Salicylates < 0.3 L (3-10) mg/dL Urine Opiates Scre en (Negative) ng/mL Acetaminophen < 5.0 L (10-30) ug/mL Ur Barbiturates Sc reen (Negative) ng/mL Ur Phencyclidine S crn (Negative) ng/mL Ur Amphetamines Sc reen (Negative) ng/mL U Benzodiazepines Scrn (Negative) ng/mL Urine Cocaine Scre en (Negative) ng/mL U Marijuana (THC) Screen (Negative) ng/mL Ethyl Alcohol < 10 (0-10) mg/dL 06/09/21 Range/Units 13:17 WBC (4.0-10.0) 10^3/ uL RBC (4.1-5.3) 10^6/u L Hgb (11.5-15.3) g/dL Hct (37.0-47.0) % MCV (81-99) fL MCH (28.0-34.0) pg MCHC (30.0-36.0) g/dL RDW (12.1-15.1) % Plt Count (130-400) 10^3/c mm MPV (7.4-10.4) fL Neut % (Auto) % Lymph % (Auto) % [place] % (Auto) % Eos % (Auto) % Baso % (Auto) % Neut # (Auto) (1.8-7.7) 10^3/u L Lymph # (Auto) (0.8-4.8) 10^3/u L [place] # (Auto) (0.2-0.9) 10^3/u L Eos # (Auto) (0.0-0.8) 10^3/u L Baso # (Auto) (0.0-0.1) 10^3/u L Nucleated RBC % (a uto) % Nucleated RBCs # /100WBC Sodium (136-145) mmol/L Potassium (3.5-5.1) mmol/L Chloride (98-107) mmol/L Carbon Dioxide (22-29) mmol/L Anion Gap (5-19) BUN (6-20) mg/dL Creatinine (0.5-0.9) mg/dL GFR Calculation (90-130) mL/min Glucose (65-115) mg/dL Calculated Osmolal ity (285-295) mOsm/k g Calcium (8.5-10.5) mg/dL Total Bilirubin (0.15-1.2) mg/dL AST (0-32) U/L ALT (0-33) U/L Alkaline Phosphata se (35-105) IU/L Total Protein (6.6-8.7) g/dL Albumin (3.5-5.2) g/dL Globulin (1.3-4.6) g/dL Urine Color (Yellow) Urine Appearance (CLEAR) Urine pH (5-7) Ur Specific Gravit y (1.005-1.030) Urine Protein (Negative) Urine Glucose (UA) (Normal) Urine Ketones (Negative) Urine Blood (Negative) Urine Nitrate (Negative) Urine Bilirubin (Negative) Urine Urobilinogen (Negative) mg/dL Ur Leukocyte Yoselyn ase (Negative) Salicylates (3-10) mg/dL Urine Opiates Scre en Negative (Negative) ng/mL Acetaminophen (10-30) ug/mL Ur Barbiturates Sc reen Negative (Negative) ng/mL Ur Phencyclidine S crn Negative (Negative) ng/mL Ur Amphetamines Sc reen Positive H (Negative) ng/mL U Benzodiazepines Scrn Negative (Negative) ng/mL Urine Cocaine Scre en Negative (Negative) ng/mL U Marijuana (THC) Screen Negative (Negative) ng/mL Ethyl Alcohol (0-10) mg/dL Discharge Plan Discharge Patient Disposition: Admitted As Inpatient Clinical Impression: Drug-induced psychotic disorder, Amphetamine abuse, Paranoid delusion Condition: Stable Coding Level of Care Code ED Electronic Warfare Technician for [facility]andes
[2021-06-09 12:45] LABS: Basophils % 0.2 %; Eosinophils % 0.1 %; Hematocrit 42.1 % (37.0-47.0); Hemoglobin 13.9 g/dL (11.5-15.3); Lymphocytes # 1.4 10^3/uL (0.8-4.8); Lymphocytes % 15.3 %; Mean Corpuscular Hemoglobin 31.1 pg (28.0-34.0); Mean Corpuscular Volume 94.2 fL (81-99); Mean Platelet Volume 9.8 fL (7.4-10.4); Monocytes # 0.6 10^3/uL (0.2-0.9); Monocytes % 6.2 %; Neutrophils # 6.96 10^3/uL (1.8-7.7); Neutrophils % 77.6 %; Nucleated Red Blood Cells % 0 %; Platelet Count 273 10^3/cmm (130-400); Red Blood Count 4.47 10^6/uL (4.1-5.3); Red Cell Distribution Width 13.1 % (12.1-15.1)
[2021-06-09 13:06] LABS: Alanine Aminotransferase 12 U/L (0-33); Albumin Level 4.4 g/dL (3.5-5.2); Alkaline Phosphatase 78 IU/L (35-105); Aspartate Amino Transferase 14 U/L (0-32); Blood Urea Nitrogen 12 mg/dL (6-20); Calcium 8.9 mg/dL (8.5-10.5); Carbon Dioxide 23 mmol/L (22-29); Chloride 101 mmol/L (98-107); Globulin 2.4 g/dL (1.3-4.6); Glucose 112 mg/dL (65-115); Osmolality Calculated 281 mOsm/kg (285-295); Sodium 135 mmol/L (136-145); Total Bilirubin 0.4 mg/dL (0.15-1.2); Total Protein 6.8 g/dL (6.6-8.7)
[2021-06-09 13:14] LABS: Acetaminophen < 5.0 ug/mL (10-30); Alcohol Level < 10 mg/dL (0-10); Salicylate < 0.3 mg/dL (3-10)
[2021-06-09 13:15] LABS: Anion Gap 14.7 (5-19); Potassium 3.7 mmol/L (3.5-5.1)
[2021-06-09 13:20] VITALS: BP 149/108; PULSE 76; RESP 20; O2SAT 97
[2021-06-09 13:21] LABS: Add Urine Microscopic? NO; Charge for UA Resulting for Rev
[2021-06-09 13:30] LABS: Bilirubin Urine 1+ (Negative); Blood Urine Neg (Negative); Glucose Urine UA Norm (Normal); Ketones Urine 1+ (Negative); Leukocyte Esterase Urine Negative (Negative); Nitrate Urine Negative (Negative); Protein Urine Neg (Negative); Specific Gravity, Urine 1.025 (1.005-1.030); Urine Appearance Clear (CLEAR); Urine Color Yellow (Yellow); Urobilinogen Urine Norm (Negative); pH Urine 5 (5-7)
[2021-06-09 13:36] LABS: Amphetamines Screen Urine Positive (Negative); Barbiturates Screen Urine Negative (Negative); Benzodiazepines Screen Urine Negative (Negative); Cocaine Screen Urine Negative (Negative); Opiate Screen Urine Negative (Negative); PCP Screen Urine Negative (Negative); THC Screen Urine Negative (Negative)
[2021-06-09 15:15] VITALS: BP 153/114; PULSE 90; RESP 18; TEMP 37.1; O2SAT 97
[2021-06-09 20:52] VITALS: BP 151/107; PULSE 84; RESP 19; TEMP 36.5; O2SAT 97
[2021-06-09 22:51] VITALS: BP 153/99; PULSE 65; RESP 18; O2SAT 100
[2021-06-10] MEDS: hyDROXYzine 25 mg Capsule 50 MG PO (00:04)
[2021-06-10] MEDS: trazodone 50 mg Tablet PO (00:04)
--- NOTE | 2021-06-10 04:18 | PC.NURSE ---
Pt Eloped Pt pulled the fire alarm, evaded security, PLASTIC SHEETING CUTTER's, and eloped. She escaped the unit thru the front glass doors. Fire alarm initiated the immediate release of door locks. Pt took the opportunity to exit the unit. Security and staff gave jaden.
--- NOTE | 2021-06-10 04:21 | PC.NURSE ---
Physical Hold Initiated by Security Staff Pt eloped from NPU and returned to NPU, she is walking without difficulty with both arms held behind her back by security installation sales technician. Patient was released from hold upon reentry to [facility] lock down [place]. minor scratches on patients chin noted, no medical intervention for this is needed at this time. Physician was notified of elopement and patient condition
--- NOTE | 2021-06-10 04:30 | PC.NURSE ---
0417@Elopement Pt began to get agitated, she was checking doors, yelling at staff in CSU to help me, Let me out. Staff attempted to calm pt verbally. She was redirected to the dayroom. Pt calmed for a moment. She left the dayroom, went to her room and hit the code blue button, machine installer turned it off, nurse called stretcher leveler operator helper to let her know that it was a false alarm. Pt repeated this behavior. Then calmed momentarily. Pt returned to the dayroom, upset. She wanted to talk to someone else , I need to call my boyfriend. Staff contacted, chief security officer, he came to unit. Spoke to the patient in the dayroom and just outside of the dayroom. She began to calm down but in just a momentary impulse, she pulled the fire alarm, doors openned and she made it past the chief security officer, clark Cardozo told the machine installer to Hold the single door. Pt hearing this, hit the single door, the glass doors auto unlock, she made a run for the parking lot. chief security officer and both FELT STRIP FINISHER's, left the unit in persuit of patient and apprehended her in the surgical services parking lot. Fire Dept contacted to turn off alarms, stretcher leveler operator helper notified in order to prevent other staff/patient disruption. CSU, contacted to keep doors guarded until unit was able to lock down. distribution supervisor, Mariann, contacted. Yari arrived just after patient returned to the unit. Security staff physically guided the patient back to unit safely. Pt did have a small abrasion on her chin when she returned to the unit from the elopement attempt. The scrape did not require intervention. She is still agitated, yelling, they are going to kill me. Med nurse instructed to gather B52 for medication needed to calm patient. Pt received 50mg IM benedryl, 2mg IM Ativan, and 5mg IM Haldol @0438. Security, Auto Garage Attendant, med nurse, both FELT STRIP FINISHER's, and Charge nurse present. Pt willingly accepted Injections from the med nurse due to increased staff presence. Pt is now a 1:1. Elopement bracelet applied. Unit inspected for security and to make sure door locks were fully latched and engaged. Security staff ensured the alarms were reset.
--- NOTE | 2021-06-10 04:30 | PC.NURSE ---
0417@Elopement Pt began to get agitated, she was checking doors, yelling at staff in CSU to help me, Let me out. Staff attempted to calm patient verbally. She was redirected to the dayroom. Patient calmed for a moment. She left the dayroom, went to her room and hit the code blue button, GENERAL AGENT turned it off, nurse called relay operator to let her know that it was a false alarm. Pt repeated this behavior. Then calmed momentarily. Pt returned to the dayroom, upset. She wanted to talk to someone else , I need to call my boyfriend. Staff contacted, botanical technical officer, he came to unit. Spoke to the patient in the dayroom and just outside of the dayroom. She began to calm down but in just a momentary impulse, she pulled the fire alarm, doors opened and she made it past the sap security architect, clark Cardozo told the GENERAL AGENT to Hold the single door. Pt hearing this, hit the single door, the glass doors auto unlock, she made a run for the parking lot. botanical technical officer and both GENERAL AGENT's, left the unit in pursuit of patient and apprehended her in the surgical services parking lot. Fire Dept contacted to turn off alarms, relay operator notified in order to prevent other staff/patient disruption. CSU, contacted to keep doors guarded until unit was able to lock down. Aircraft Refueller, Mariann, contacted. Yari arrived just after patient returned to the unit. Security staff physically guided the patient back to unit safely. Pt did have a small abrasion on her chin when she returned to the unit from the elopement attempt. The scrape did not require intervention. She is still agitated, yelling, they are going to kill me. Med nurse instructed to gather medications needed to calm patient. Pt received 50mg IM Benedryl, 2mg IM Ativan, and 5mg IM Haldol @0438. Security, Aircraft Refueller, med nurse, both GENERAL AGENT's, and Charge nurse present. Pt willingly accepted Injections from the med nurse due to increased staff presence. Pt is now a 1:1. Elopement bracelet applied. Unit inspected for security and to make sure door locks were fully latched and engaged. Security staff ensured the alarms were reset.
[2021-06-10] MEDS: diphenhydrAMINE 50 mg/mL SDV 1mL IM (04:38)
[2021-06-10] MEDS: LORazepam 2 mg/mL INJ 1 mL IM (04:38)
[2021-06-10] MEDS: haloperidol inj 5 mg/mL INJ 1 mL IM (04:38)
--- NOTE | 2021-06-10 04:45 | PC.NURSE ---
The patient had eloped from the facility at 0417. She returned to the facility accompanied by a armed security professional and a CONTRACTS DIRECTOR. She was agitated. she was shouting, 'tell him I love him. She shouted, they are going to kill me now. She was not able to calm herself. She was given 5 mg Haldol IM, Ativan 2 mg IM, Benadryl 50 mg IM at 0438. The patient voluntarily accepted the medications.
--- NOTE | 2021-06-10 04:50 | PC.NURSE ---
WEASAND TRIMMER/Pt condition post elopement MIMA Cardozo sustained a knee injury in jaden. Pt returned from the parking lot in manual arm hold, ambulating, still combative, delusional, agitated. Pt has small scratches to the chin sustained in elopement recovery.
--- NOTE | 2021-06-10 05:30 | PC.NURSE ---
Behavior/agitated-delusional behavior change, patient affect and energy level. Pacing the halls, pt began to cry, visibly upset, talking to herself in her room, nursing offered medication and patient refused medication. Pt seemed very scared and avoids staff interactions, fixated on RN stated verbally, I do not trust you. I saw your name and phone number in my boyfriends lunch box, you are in on this, you are going to kill me, you are in on this too. Pt began to check the doors to unit, and called out to CSU Staff, Help me, let me out. Pt began to set off call lights/code blue lights in various patient rooms. Staff attempted to re-direct, distract, and attempted talk to the patient multiple times. FIRE CONTROL SYSTEM INSTALLER called data security coordinator when it became apparent that this patient's behavior was in the beginning stages of escalation. Interventions attempted: Medication for anxiety/agitation offered and declined by patient, verbal de-escalation, beverage offered, snacks, staff presence increased, re-direction, silent observation, attempt to remove additional stimuli, granted request of patient to speak to Some One Else, not on the unit, a nurse, data security coordinator, or anyone but else.. Notified Security and Pile Driver Operator, both came to unit. Security spoke to patient. Interventions were not successful, with Security staff on the unit, Pile Driver Operator on the way, the patient quickly pulled the fire alarm cover and set the fire alarm off in the unit, causing the automatic lock release of the exit doors, pt ran for the exit, and eloped from NPU. Picking Machine Operator Helper, Josiah, MIMA Gonzalez, and MIMA Larkin, gave jaden. Patient apprehended by Security and FIRE CONTROL SYSTEM INSTALLER's. president and chief executive officer placed patient in a manual hold to walk her back to the unit. Upon entry to NPU, Charge Nurse, assessed patient condition, and noted small superficial scratches on on the patient's chin that did not require intervention. Antonino Kirk, who was not on the unit at time of elopement, returned shortly after the patient was apprehended by staff in the parking lot of [facility] and returned to NPU in a manual bilateral ambulatory physical hold. Antonino RN was instructed to gather medications necessary for anxiety/agitation relief of patient. Patient returned to her room with Security and staff, she willingly sat on her bed, and allowed the RN to administer injections without any further incident. MIMA Gonzalez, assigned 1:1 duties for this patient until shift change the following morning. Staff attempted to prevent escalation/elopement with every intervention above without success of full de-escalation. Patient remained paranoid throughout the remainder of shift and rested intermittently even with the administration of IM medication administration.
[2021-06-10 06:00] VITALS: RESP 15
--- NOTE | 2021-06-10 08:33 | P.HP_ITS ---
Providers/Chief Complaint Admitting Physician: Gurpreet Khan MD Primary Care Provider: Tyshawn Echeverria MD Chief Complaint: BEHAVIORAL ISSUES/ PARANOID HPI NPU History of Present Illness Lexus Egan is a 40 year old female who presented to the emergency department with the following report: Chief Complaint: Psychiatric Symptoms Stated Complaint: BEHAVIORAL ISSUES/ PARANOID Time Seen by Provider: 06/09/21 11:15 History of Present Illness: HPI Narrative: 40-year-old female referred to the ER by [facility] with paranoid thoughts. She been living in the [facility] (formerly [facility] Patient has been paranoid delusions. Patient believes someone has something on her phone. She also cites that someone is hacked her ability to buy things through the Internet and that this thing she orders are not really coming from where she orders but actually coming from where she orders (her description not mine). She is convinced that there are cameras everywhere watching her she is upset because they do not properly use alarms at the [facility] where she is staying. She reports she try to get away from some soft were somehow someone had bugged her phone by buying a new phone at [facility] but it had a SIM card and when she got it so she was convinced that already compromised the phone when she bought it. She has been admitted in the past for similar paranoid delusions. complaint: other (Paranoid delusions) Onset (ago): unknown Duration: getting worse History of same: Yes Relieving factors: none Exacerbating factors: none Associated psychiatric symptoms: depression, racing thoughts, visual hallucinations and delusions Associated symptoms: Reports visual hallucinations, delusions and racing thoughts; Deny auditory hallucinations, depression, homicidal ideation or suicidal ideation Treatments prior to arrival: placed on mental health hold. She was admitted to the neuropsychiatric unit for definitive treatment of those issues. She presents today reporting that she has been hospitalized maybe 3 times. She has not had significant follow-up recently. She does report that she been taking the medication is unclear whether that is true or not. Most of her answers to questions were none. When asked about what happened in the created her presentation here she said she had no when asked what her symptoms are she reported she just does not feel good. When I did review reports about her presentation she did confirm having significant paranoia. She is a poor historian however mostly. He was smoking cigarettes, denies alcohol significant 1 or any other illicit drug use other than methamphetamine but she did not characterize her level with the methenamine use. She reports that she is never been to rehab but she had a DUI in 2011. Otherwise she denied substantive changes since her last presentation here. The discharge summary from her last visit in April is included below for context. We did discuss the risk benefits alternatives of restarting her Celexa and adding Abilify to help with her current presents. Per her 05/02/2021 [facility] discharge summary from inpatient services: Discharge Diagnosis (1) Poison sasha dermatitis: Status: Acute (2) Amphetamine abuse: Status: Acute (3) Suicidal ideation: Status: Acute (4) Amphetamine-induced psychotic disorder: Status: Acute Qualifiers: Complication of substance-induced condition: with delusions Qualified Code(s): F15.950 - Other stimulant use, unspecified with stimulant-induced psychotic disorder with delusions (5) Depressive disorder: Status: Acute (6) Urinary tract infection: Status: Acute Reason for Visit Reason for Visit: PARANOID Hospital Course Hospital Course 40 year old female with remote history of being treated for depression at age 19 presented to the emergency department twice in the last few days with substance- induced psychotic symptoms most recently presenting with paranoia in the context of positive urine drug screen for amphetamines although she reports last use being greater then 72 hours ago continues to have a positive urine drug screen from amphetamines. She states that she had been using methamphetamine on a daily basis for several weeks prior to discontinuing a few days ago. Patient was also reportedly suicidal while she was in the emergency department but currently denying any suicidal ideation and denying any depressive symptoms. Patient quickly noted resolution of her paranoia after admission and likely exacerbated or precipitated by her methamphetamine use. She also reported some depressive symptoms on started on citalopram 10 mg daily which she reported some relief with no reports of any medication side effects. Patient mostly staying in her room to her self but participated in unit milieu with no reports of any behavioral disturbances. Patient was reporting diffuse itching on part of her skin with noted vesicles; hospitalist was consulted and treated patient with short and long-acting steroid injections in addition to symptomatic care. Patient was not suicidal and did not reporting to psychotic symptoms at the time of discharge and did not appear to pose an imminent threat of harm to self or others. Patient was offered placement to a prison and various other substance treatment programs which the patient refused and elected to leave with her boyfriend who she had previously been doing methamphetamine with. Low to moderate risk of harm to self given no current suicidal ideation and currently not endorsing any psychiatric symptoms although her risk will continue to be elevated if she continues to use methamphetamine or other substances and alcohol and continues to be noncompliant with treatment recommendations leading to unexpected, impulsive behavior. Risk mitigation included psychiatric hospitalization, medication stabilization, recommendation to abstain from use of substances and alcohol as well as the need for compliance with her medication, medication management and substance counseling/treatment follow-up. Patient was able to communicate her understanding of the need to abstain from the use of substances and alcohol as well as the need for compliance with her medication, medication management and substance counseling/therapy follow-up in order to further mitigate her risk of harm to self and others. Patient also communicated her need for follow-up for medication management as well as following evaluation of her rash. Meds NPU Home Medications Medication Instructions Recorded Confirmed Last Taken Type citalopram 10 mg PO DAILY #30 tab 05/02/21 06/09/21 Unknown Rx Allergies Allergy/AdvReac Type Severity Reaction Status Date / Time No Known Allergies Allergy Verified 06/09/21 11:28 PFS NPU PFSH: Social History Additional social history: With me denies any tobacco alcohol or drug use Mental Status Exam MSE Comments: This is an obese white female in hospital scrubs with limited grooming and eye contact. No abnormal movements except for significant psychomotor retardation. Semicooperative with exam in mild distress. Speech was limited and decreased rate and volume. Mood described as I will note, affect subdued and irritable. Thought process organized. Thought content: Patient denied suicidal homicidal ideation, she endorsed paranoia and appeared guarded, she endorsed some auditory hallucinations. Attention concentration were limited and memory was unreliable mostly but none were formally tested. She alert and oriented x2/person and place. Insight and judgment are impaired and impulse control is impaired. Vitals/I&O/Wt Last Vital Signs Temp 97.7 F 06/09/21 20:52 Pulse 65 06/09/21 22:51 Resp 15 06/10/21 06:00 BP 153/99 06/09/21 22:51 Pulse Ox 100 06/09/21 22:51 Weight last 48 hrs Weight 77.111 kg Data NPU : 06/09/21 12:39 06/09/21 12:39 A&P Assessment and plan (1) Drug-induced psychotic disorder: Status: Acute (2) Paranoid delusion: Status: Acute (3) Depressive disorder: Status: Acute (4) Urinary tract infection: Status: Acute (5) Amphetamine abuse: Status: Acute Additional A&P Information This is a 40-year-old white female with a long history of addiction and mental health issues who presents with paranoia and psychosis likely secondary to methamphetamine use with concerns for lethality. 1. Continue current medication. We will restart Celexa and start Abilify 10 mg p.o. every morning to assist with her psychosis. 2. Continue every 15 minute checks for safety. 3. Encourage individual, group and milieu therapies. 4. Encourage sober living treatment after discharge at the highest level of care to which he is willing to commit. Involuntary Hold Information 96 Hour Hold: 96 Hour Involuntary Admission: Yes 96 Hour Hold Ending Date: 05/04/21 96 Hour Hold Ending Time: 01:16 Attestations NPU Medical Necessity Statement*: Inpatient hospitalization is medically necessary and the clinically appropriate intervention at this time. We will monitor medications and make changes as indicated. Patient will be in the hospital for over two midnights. Likely length of stay 3 to 5 days. Coding Level of Care Code Acute Systems Support Specialist for Estuardo Hernandes Diagnoses Drug-induced psychotic disorder F19.959 Paranoid delusion F22 Depressive disorder F32.9 Urinary tract infection N39.0 Amphetamine abuse F15.10
[2021-06-10] MEDS: citalopram 20 mg Tablet 10 MG PO (13:41)
[2021-06-10] MEDS: ARIPiprazole 10 mg Tablet PO (13:41)
[2021-06-10 14:00] VITALS: BP 114/81; PULSE 73; RESP 16; TEMP 36.7; O2SAT 94
[2021-06-10 20:30] VITALS: BP 110/80; PULSE 106; RESP 18; TEMP 36.6; O2SAT 93
[2021-06-11 06:00] VITALS: BP 108/79; PULSE 98; RESP 18; TEMP 36.3; O2SAT 99
[2021-06-11] MEDS: ARIPiprazole 10 mg Tablet PO (08:04)
[2021-06-11] MEDS: citalopram 20 mg Tablet 10 MG PO (08:04)
--- NOTE | 2021-06-11 13:02 | PM.NPN ---
Subjective NPU Subjective: Interval history: Lexus presents today reporting that she is doing okay. She continues to be very irritable and answering a short answers. She eventually explained the reason why she was being short because she was upset that she was in the hospital. We discussed briefly what letter being there and our charge the make sure that she is safe prior to discharge and the fact that we just need to see that her psychosis has broken and she is safe and she does not necessarily have to be there through the end of her own. Mental Status Exam MSE Comments: This is an obese white female in hospital scrubs with limited grooming and eye contact. No abnormal movements except for significant psychomotor retardation. Semicooperative with exam in mild distress. Speech was limited and decreased rate and volume. Mood described as I do not know, affect subdued and irritable. Thought process organized. Thought content: Patient denied suicidal or homicidal ideation, she endorsed paranoia and appeared guarded, she denied auditory or visual hallucinations. Attention concentration were limited and memory was unreliable mostly but none were formally tested. She alert and oriented x3. Insight and judgment are impaired and impulse control is impaired. Vitals/I&O/Wt Last Vital Signs Temp 97.3 F L 06/11/21 06:00 Pulse 98 06/11/21 06:00 Resp 18 06/11/21 06:00 BP 108/79 06/11/21 06:00 Pulse Ox 99 06/11/21 06:00 Data NPU : 06/09/21 12:39 06/09/21 12:39 A&P Additional A&P Information (1) Drug-induced psychotic disorder: (2) Paranoid delusion: (3) Depressive disorder: (4) Urinary tract infection: (5) Amphetamine abuse: Additional A&P Information This is a 40-year-old white female with a long history of addiction and mental health issues who presents with paranoia and psychosis likely secondary to methamphetamine use with concerns for lethality. 1. Continue current medication. 2. Continue every 15 minute checks for safety. 3. Encourage individual, group and milieu therapies. 4. Encourage sober living treatment after discharge at the highest level of care to which he is willing to commit. Involuntary Hold Information 96 Hour Hold: 96 Hour Involuntary Admission: Yes 96 Hour Hold Ending Date: 05/04/21 96 Hour Hold Ending Time: 01:16 Attestations NPU Medical Necessity Statement*: Inpatient hospitalization is medically necessary and the clinically appropriate intervention at this time. We will monitor medications and make changes as indicated. Likely length of stay 2-4 days. Coding Level of Care Code Acute Applications Project Manager for Estuardo Hernandes
[2021-06-11 13:36] VITALS: BP 131/85; PULSE 78; RESP 16; TEMP 36.6; O2SAT 97
[2021-06-11 22:00] VITALS: BP 102/70; PULSE 76; RESP 16; TEMP 36.2; O2SAT 96
[2021-06-12 06:00] VITALS: BP 127/79; PULSE 74; RESP 18; TEMP 36.7; O2SAT 98; BMI 32.1
[2021-06-12] MEDS: ARIPiprazole 10 mg Tablet PO (08:37)
[2021-06-12] MEDS: citalopram 20 mg Tablet 10 MG PO (08:37)
[2021-06-12 14:00] VITALS: BP 110/79; PULSE 70; RESP 18; TEMP 36.5; O2SAT 96
--- NOTE | 2021-06-12 17:15 | P.PN_ITS ---
Subjective NPU Subjective: Interval history: Also presented today very focused on getting out of here. The more that we spoke the more clearly her psychosis and paranoia came to the service. Problems 1 sinks in different places he had been being a sign of something in this selling underwriter in her room wondering if she was referring to something on that think and she wanted worrying about the fact that this selling underwriter had looked at the mirror and that somehow having some meaning. She went on and on about how no one was to be trusted. Mental Status Exam MSE Comments: This is an obese white female in hospital scrubs with limited grooming and eye contact. No abnormal movements except for significant psychom otor agitation. Semicooperative with exam in mild to extreme distress. Speech was increased rate and volume. Mood described as I does need to be able to get to the police, affect dramatic and labile. Thought process organized. Thought content: Patient denied suicidal or homicidal ideation, she endorsed paranoia and appeared guarded, she denied auditory or visual hallucinations but her reports of her circumstances raise questions about her hearing and seeing things. Attention and concentration were limited and memory was unreliable mostly but none were formally tested. She alert and oriented x3. Insight and judgment are impaired and impulse control is impaired. Vitals/I&O/Wt Last Vital Signs Temp 98.9 F 06/12/21 21:49 Pulse 70 06/12/21 21:49 Resp 18 06/12/21 21:49 BP 113/78 06/12/21 21:49 Pulse Ox 96 06/12/21 21:49 Weight last 48 hrs Weight 77.111 kg Data NPU : 06/09/21 12:39 06/09/21 12:39 A&P Additional A&P Information (1) Drug-induced psychotic disorder: (2) Paranoid delusion: (3) Depressive disorder: (4) Urinary tract infection: (5) Amphetamine abuse: Additional A&P Information This is a 40-year-old white female with a long history of addiction and mental health issues who presents with paranoia and psychosis likely secondary to methamphetamine use with concerns for lethality. 1. Continue current medication. May consider increase in Abilify tomorrow. 2. Continue every 15 minute checks for safety. 3. Encourage individual, group and milieu therapies. 4. Encourage sober living treatment after discharge at the highest level of care to which he is willing to commit. Involuntary Hold Information 96 Hour Hold: 96 Hour Involuntary Admission: Yes 96 Hour Hold Ending Date: 05/04/21 96 Hour Hold Ending Time: 01:16 Attestations NPU Medical Necessity Statement*: Inpatient hospitalization is medically necessary and the clinically appropriate intervention at this time. We will monitor medications and make changes as indicated. Likely length of stay 2-4 days. Coding Level of Care Code Acute Perl Developer for Estuardo Hernandes
[2021-06-12] MEDS: acetaminophen 325 mg Tablet 650 MG PO (21:46)
[2021-06-12 21:49] VITALS: BP 113/78; PULSE 70; RESP 18; TEMP 37.2; O2SAT 96
[2021-06-12] MEDS: trazodone 50 mg Tablet PO (21:55)
--- NOTE | 2021-06-12 22:00 | PC.NURSE ---
pt requesting sleep med. Trazodone 50mg po given.
--- NOTE | 2021-06-12 23:00 | PC.NURSE ---
pt resting quietly with both eyes closed
[2021-06-13 06:00] VITALS: BP 110/77; PULSE 71; RESP 15; TEMP 36.5; O2SAT 98
[2021-06-13] MEDS: citalopram 20 mg Tablet 10 MG PO (08:38)
[2021-06-13] MEDS: ARIPiprazole 10 mg Tablet PO (08:38)
--- NOTE | 2021-06-13 10:35 | PM.NPN ---
Subjective NPU Subjective: Interval history: Lexus presents today with continued paranoia and struggling to fit into the unit. Reports today was a sort of what ever response vibe. She continues to feel everyone is against her and that she is not safe on the unit. She was ambivalent about discussion of the risk-benefit alternatives of increasing her Abilify but she understood and was unclear whether she was going to follow through with that plan. She is not getting sincere answers to most questions and this what ever mode. Mental Status Exam MSE Comments: This is an obese white female in hospital scrubs with limited grooming and eye contact. No abnormal movements except for significant psychomotor agitation. Semicooperative with exam in mild distress. Speech was more normal rate and volume. Mood described as I am fine which was not believable, affect annoyed and subdued. Thought process organized. Thought content: Patient denied suicidal or homicidal ideation, she endorsed paranoia and appeared guarded, she denied auditory or visual hallucinations but her reports of her circumstances raise questions about her hearing and seeing things. Attention and concentration were limited and memory was unreliable mostly but none were formally tested. She alert and oriented x3. Insight and judgment are impaired and impulse control is impaired. Vitals/I&O/Wt Last Vital Signs Temp 97.7 F 06/13/21 06:00 Pulse 71 06/13/21 06:00 Resp 15 06/13/21 06:00 BP 110/77 06/13/21 06:00 Pulse Ox 98 06/13/21 06:00 Weight last 48 hrs Weight 77.111 kg Data NPU : 06/09/21 12:39 06/09/21 12:39 A&P Additional A&P Information (1) Drug-induced psychotic disorder: (2) Paranoid delusion: (3) Depressive disorder: (4) Urinary tract infection: (5) Amphetamine abuse: Additional A&P Information This is a 40-year-old white female with a long history of addiction and mental health issues who presents with paranoia and psychosis likely secondary to methamphetamine use with concerns for lethality. 1. Continue current medication. Increase Abilify to 15 mg p.o. every morning in the morning. 2. Continue every 15 minute checks for safety. 3. Encourage individual, group and milieu therapies. 4. Encourage sober living treatment after discharge at the highest level of care to which he is willing to commit. Involuntary Hold Information 96 Hour Hold: 96 Hour Involuntary Admission: Yes 96 Hour Hold Ending Date: 05/04/21 96 Hour Hold Ending Time: 01:16 Attestations NPU Medical Necessity Statement*: Inpatient hospitalization is medically necessary and the clinically appropriate intervention at this time. We will monitor medications and make changes as indicated. Likely length of stay 2-4 days. Based on the current pace of recovery we may need to file for a 21-day hold. Coding Level of Care Code Acute Cyber Workforce Developer And Manager for Estuardo Hernandes
[2021-06-13 14:00] VITALS: BP 114/80; PULSE 79; RESP 17; TEMP 36.7; O2SAT 97
[2021-06-13 20:39] VITALS: BP 119/82; PULSE 71; RESP 16; TEMP 37; O2SAT 97
[2021-06-13] MEDS: OLANZapine 5 mg ODT PO (21:21)
--- NOTE | 2021-06-13 21:25 | PC.NURSE ---
pt stated that she had a phone call that upset her, requested med to help her anxiety. Zyprexa 5mg po given.
--- NOTE | 2021-06-13 22:53 | PC.NURSE ---
pt resting quietly with both eyes closed.
[2021-06-14 05:29] VITALS: BP 108/76; PULSE 77; RESP 18; TEMP 36.5; O2SAT 98
[2021-06-14] MEDS: ARIPiprazole 10 mg Tablet 15 MG PO (08:02)
[2021-06-14] MEDS: citalopram 20 mg Tablet 10 MG PO (08:02)
--- NOTE | 2021-06-14 11:36 | PM.NPN ---
Subjective NPU Subjective: Interval history: Lexus presents today reporting that things are going better. However she answered fine for the first 3 or 4 questions asked with a fairly irritable overtones with no prosody in her voice. When asked her if she was angry about something she said no but every answer was short and curse. Then she asked when was she going to be able to go home in an equally angry tone. We discussed the treatment team's goals to help her be well enough for independent functioning which she responded I know the hospital helps. Mental Status Exam MSE Comments: This is an obese white female in hospital scrubs with limited grooming and eye contact. No abnormal movements except for significant psychomotor agitation. Semicooperative with exam in mild distress. Speech was more normal rate and volume but with quick short answers with no or limited prosody. Mood described as I am fine which was not believable, affect annoyed and subdued. Thought process organized. Thought content: Patient denied suicidal or homicidal ideation, she endorsed paranoia and appeared guarded, she denied auditory or visual hallucinations but her reports of her circumstances raise questions about her hearing and seeing things. Attention and concentration were limited and memory was unreliable mostly but none were formally tested. She alert and oriented x3. Insight and judgment are impaired and impulse control is impaired. Vitals/I&O/Wt Last Vital Signs Temp 97.7 F 06/14/21 05:29 Pulse 77 06/14/21 05:29 Resp 18 06/14/21 05:29 BP 108/76 06/14/21 05:29 Pulse Ox 98 06/14/21 05:29 Data NPU : 06/09/21 12:39 06/09/21 12:39 A&P Additional A&P Information (1) Drug-induced psychotic disorder: (2) Paranoid delusion: (3) Depressive disorder: (4) Urinary tract infection: (5) Amphetamine abuse: Additional A&P Information This is a 40-year-old white female with a long history of addiction and mental health issues who presents with paranoia and psychosis likely secondary to methamphetamine use with concerns for lethality. 1. Continue current medication. Abilify increased to 15 mg p.o. every morning. 2. Continue every 15 minute checks for safety. 3. Encourage individual, group and milieu therapies. 4. Encourage sober living treatment after discharge at the highest level of care to which he is willing to commit. She is in denial about methamphetamine use or its impact on her cognition. 5. We will file a 21-day hold form given her limited improvement and continued hostility. Involuntary Hold Information 96 Hour Hold: 96 Hour Involuntary Admission: Yes 96 Hour Hold Ending Date: 05/04/21 96 Hour Hold Ending Time: 01:16 Attestations NPU Medical Necessity Statement*: Inpatient hospitalization is medically necessary and the clinically appropriate intervention at this time. We will monitor medications and make changes as indicated. Likely length of stay 2-4 days. Coding Level of Care Code Acute Import/Export Specialist for Estuardo Hernandes
[2021-06-14 13:44] VITALS: BP 107/74; PULSE 76; RESP 15; TEMP 36.5; O2SAT 98
[2021-06-14] MEDS: trazodone 50 mg Tablet PO (20:15)
--- NOTE | 2021-06-14 20:57 | PC.NURSE ---
pt requested sleeping med , trazodone 50mg po given.
[2021-06-14 22:00] VITALS: BP 107/72; PULSE 61; RESP 20; TEMP 36.9; O2SAT 96
[2021-06-15 06:00] VITALS: BP 111/80; PULSE 91; RESP 18; TEMP 36.8; O2SAT 96
[2021-06-15] MEDS: citalopram 20 mg Tablet 10 MG PO (08:01)
[2021-06-15] MEDS: ARIPiprazole 10 mg Tablet 15 MG PO (08:02)
--- NOTE | 2021-06-15 10:12 | PM.NPN ---
Subjective NPU Subjective: Interval history: Lexus presents today continuing to be irritable and frustrated about being here. We discussed the fact that the new doctors taking over as she would essence have a second opinion in relation to the hold and her continued stay in the hospital. She continued the answering every question with fine. He denies any need to be here and continues to downplay her addiction and its impact on her being here. Mental Status Exam MSE Comments: This is an obese white female in hospital scrubs with limited grooming and eye contact. No abnormal movements except for significant psychomotor agitation. Semicooperative with exam in mild distress. Speech was more normal rate and volume but with quick short answers with no or limited prosody. Mood described as I am fine which was not believable, affect annoyed and subdued. Thought process organized. Thought content: Patient denied suicidal or homicidal ideation, she endorsed paranoia and appeared guarded, she denied auditory or visual hallucinations but her reports of her circumstances raise questions about her hearing and seeing things. Attention and concentration were limited and memory was unreliable mostly but none were formally tested. She alert and oriented x3. Insight and judgment are impaired and impulse control is impaired. Vitals/I&O/Wt Last Vital Signs Temp 98.3 F 06/15/21 06:00 Pulse 91 06/15/21 06:00 Resp 18 06/15/21 06:00 BP 111/80 06/15/21 06:00 Pulse Ox 96 06/15/21 06:00 Data NPU : 06/09/21 12:39 06/09/21 12:39 A&P Additional A&P Information (1) Drug-induced psychotic disorder: (2) Paranoid delusion: (3) Depressive disorder: (4) Urinary tract infection: (5) Amphetamine abuse: Additional A&P Information This is a 40-year-old white female with a long history of addiction and mental health issues who presents with paranoia and psychosis likely secondary to methamphetamine use with concerns for lethality. 1. Continue current medication. 2. Continue every 15 minute checks for safety. 3. Encourage individual, group and milieu therapies. 4. Encourage sober living treatment after discharge at the highest level of care to which he is willing to commit. She is in denial about methamphetamine use or its impact on her cognition. 5. Fild 21-day hold form given her limited improvement and continued hostility. Will await Dr. Huertas's evaluation for continuing 21 day hold versus discharge. Involuntary Hold Information 96 Hour Hold: 96 Hour Involuntary Admission: Yes 96 Hour Hold Ending Date: 05/04/21 96 Hour Hold Ending Time: 01:16 Attestations NPU Medical Necessity Statement*: Inpatient hospitalization is medically necessary and the clinically appropriate intervention at this time. We will monitor medications and make changes as indicated. Likely length of stay 2-4 days. Coding Level of Care Code Acute Special Crimes Investigator for Estuardo Hernandes
[2021-06-15 14:00] VITALS: BP 107/79; PULSE 55; RESP 20; TEMP 36.6; O2SAT 96
[2021-06-15] MEDS: hyDROXYzine 25 mg Capsule 50 MG PO ×2 (18:05→22:47)
--- NOTE | 2021-06-15 18:05 | PC.NURSE ---
PRN VISTARIL 50 MG GIVEN PO PER PT C/O ANXIETY. PT UPSET ABOUT COURT DATE TOMORROW FOR POSSIBLE 21 DAY HOLD, PT ADAMANTLY WANTING TO GO HOME TOMORROW. STAFF WILL CONT TO MONITOR FOR DESIRED MED EFFECTIVENESS.
--- NOTE | 2021-06-15 19:40 | PC.NURSE ---
Mood Pt was very talkative with staff this evening. She is anxious about the 21-day court in the morning. She spoke at length about how she would like to have more interaction with social workers. She states, the dark headed female one gave me information on the [facility], I am going to lose my place there if I don't get out. I only have 24 hours to report in. She continued to talk about her previous stay at [facility], she states, they have all of my belongings there and they just hung up on me. She seemed enthusiastic at the probability of leaving the area to go to the [facility] ouray. She said they will provide transportation, help me get a job, and get me out of here, away from my boyfriends connections. IF I stay here, they will pull me back in. Pt apologized to nurse for elopement, she said, I felt trapped and scared.I was not sure who the doctor was, I don't feel like I have really seen one. Pt continues to be nervous, stayed in her room this evening, only coming out for snack. Pt would like to have a shower in the morning prior to court, she said I want to feel human again, free.
[2021-06-15 22:00] VITALS: BP 107/79; PULSE 55; RESP 17; TEMP 36.6; O2SAT 96
[2021-06-15] MEDS: trazodone 50 mg Tablet PO (22:47)
[2021-06-16 06:00] VITALS: BP 108/73; PULSE 71; RESP 18; TEMP 36.6; O2SAT 96
[2021-06-16] MEDS: ARIPiprazole 10 mg Tablet 15 MG PO (09:00)
[2021-06-16] MEDS: citalopram 20 mg Tablet 10 MG PO (09:00)
--- NOTE | 2021-06-16 09:57 | PC.NURSE ---
Patient off unit @[id number] With [facility] officer to court for 21 day hearing
--- NOTE | 2021-06-16 10:33 | PC.NURSE ---
Patient returned to unit
[2021-06-16 14:00] VITALS: BP 106/74; PULSE 76; RESP 20; TEMP 36.3; O2SAT 96
--- NOTE | 2021-06-16 16:16 | P.PN_ITS ---
Subjective NPU Subjective: Interval history: I attended the court hearing with Dr. Khan, and the patient was ordered to remain on a 21-day hold. When I met with the patient later in the day, she was quite upset that she had been placed on a hold, and perseverated about how she had found a place for herself to stay and now she could not go there. She became more and more agitated talking about this. She says she was not hearing voices or seeing things that were not there. She said, I do not think the cup is listening to me or that something is happening in the bathroom sink. In her perspective, the testimony did not accurately reflect what she has been experiencing. On the other hand, in my perspective, the testimony did reflect the things she told me yesterday that she was experiencing, such as feeling she was being spied upon, her identity was being stolen, her devices were being monitored, etc. She said she did not sleep well last night and had bad dreams. We discussed the Abilify Maintena long- acting injectable, as was discussed in the court hearing. The patient would like to start this medication and gives consent. Mental Status Exam MSE Comments: This is an obese white female in hospital scrubs with limited grooming and eye contact. No abnormal movements except for significant psychomotor agitation. Only somewhat cooperative with exam, in mild to moderate and escalating distress. Speech was rapid and loud. Mood was described as pissed, and affect was angry. Thought process was perseverative. Thought content: Patient denied suicidal or homicidal ideation, she continued to exhibit paranoia and and to appear guarded, she denied auditory or visual hallucinations but her reports of her circumstances continue to raise questions about her hearing and seeing things. Attention and concentration were limited and memory was unreliable mostly but none were formally tested. She alert and oriented x3. Insight and judgment are impaired and impulse control is impaired. Vitals/I&O/Wt Last Vital Signs Temp 98.4 F 06/17/21 06:00 Pulse 64 06/17/21 06:00 Resp 17 06/17/21 06:00 BP 114/78 06/17/21 06:00 Pulse Ox 98 06/17/21 06:00 Data NPU : 06/09/21 12:39 06/09/21 12:39 A&P Additional A&P Information (1) Drug-induced psychotic disorder: (2) Paranoid delusion: (3) Depressive disorder: (4) Urinary tract infection: (5) Amphetamine abuse: Additional A&P Information This is a 40-year-old white female with a long history of addiction and mental health issues who presents with paranoia and psychosis likely secondary to methamphetamine use with concerns for lethality. 1. Continue current medication. We will start Abilify Maintena 400 mg IM monthly. 2. Continue every 15 minute checks for safety. 3. Encourage individual, group and milieu therapies. 4. Encourage sober living treatment after discharge at the highest level of care to which he is willing to commit. She is in denial about methamphetamine use or its impact on her cognition. 5. Patient placed on 21-day given her limited improvement and continued hostility. Involuntary Hold Information 96 Hour Hold: 96 Hour Involuntary Admission: Yes 96 Hour Hold Ending Date: 05/04/21 96 Hour Hold Ending Time: 01:16 Attestations NPU Medical Necessity Statement*: Inpatient hospitalization is medically necessary and the clinically appropriate intervention at this time. We will monitor medications and make changes as indicated. Likely length of stay 2-4 days. Coding Level of Care Code Acute Sap Portal Consultant for Estuardo Hernandes
[2021-06-16] MEDS: ARIPiprazole Maintena 400 MG IM (19:35)
[2021-06-16 20:20] VITALS: BP 118/87; PULSE 67; RESP 22; TEMP 36.5; O2SAT 97
[2021-06-16] MEDS: hyDROXYzine 25 mg Capsule 50 MG PO (21:45)
[2021-06-16] MEDS: trazodone 50 mg Tablet PO (21:46)
--- NOTE | 2021-06-16 21:50 | PC.NURSE ---
Patient request medication for sleep and anxiety. 50mg Vistaril PO and 50mg Trazodone given PO.
[2021-06-17 06:00] VITALS: BP 114/78; PULSE 64; RESP 17; TEMP 36.9; O2SAT 98
[2021-06-17] MEDS: citalopram 20 mg Tablet 10 MG PO (08:45)
[2021-06-17] MEDS: ARIPiprazole 10 mg Tablet 15 MG PO (08:46)
--- NOTE | 2021-06-17 12:49 | PM.NPN ---
Subjective NPU Subjective: Interval history: I met with the patient in the day area. She says that her mood is better, but her energy is low. She had the same dream for the past 4 nights. Appetite is good. She says she is not getting signals. She denies auditory and visual hallucinations. She does say, if I do not move out of a particular spot, I feel something bad will happen. She denies suicidal and homicidal ideation. Side effects of the Abilify include possible hunger. The patient tells me that she wants to talk to [facility], a women's custodial. She gets very agitated talking about this, saying that we forced her to lose her placement. She does not comprehend the context in which we are making decisions. She disagrees that she has had any psychosis. She also has does not seem to recognize that we will be able to find a spot in a women's custodial when she is ready to discharge. She becomes more more agitated until I ended the conversation. Mental Status Exam MSE Comments: The patient is wearing scrubs, overweight, and becomes increasingly agitated and uncooperative. She has psychomotor agitation. Speech becomes rapid and loud. She is alert and oriented to person and situation. Attention becomes perseverative. Memory is intact. Mood is anxious, suspicious and agitated. Affect is mood congruent. Thought process is perseverative. Thought content gets stuck on paranoid ideas about how we are ruining her life. She denies auditory and visual hallucinations. She denies suicidal and homicidal ideation. Insight and judgment are limited due to psychosis. Vitals/I&O/Wt Last Vital Signs Temp 98.4 F 06/18/21 20:48 Pulse 81 06/18/21 20:48 Resp 18 06/18/21 20:48 BP 126/73 06/18/21 20:48 Pulse Ox 99 06/18/21 20:48 Data NPU : 06/09/21 12:39 06/09/21 12:39 A&P Assessment and plan (1) Drug-induced psychotic disorder: Status: Acute (2) Paranoid delusion: Status: Acute (3) Poison sasha dermatitis: Status: Acute (4) Depressive disorder: Status: Acute (5) Urinary tract infection: Status: Acute (6) Amphetamine abuse: Status: Acute Additional A&P Information This is a 40-year-old white female with a long history of addiction and mental health issues who presents with paranoia and psychosis likely secondary to methamphetamine use with concerns for lethality. 1. Continue current medication. We will start Abilify Maintena 400 mg IM monthly. 2. Continue every 15 minute checks for safety. 3. Encourage individual, group and milieu therapies. 4. Encourage sober living treatment after discharge at the highest level of care to which he is willing to commit. She is in denial about methamphetamine use or its impact on her cognition. 5. Patient placed on 21-day given her limited improvement and continued hostility. Involuntary Hold Information 96 Hour Hold: 96 Hour Involuntary Admission: Yes 96 Hour Hold Ending Date: 05/04/21 96 Hour Hold Ending Time: 01:16 Attestations NPU Medical Necessity Statement*: Inpatient hospitalization is medically necessary and the clinically appropriate intervention at this time. We will monitor medications and make changes as indicated. Likely length of stay 2-4 days. Coding Level of Care Code Acute Bilingual Case Manager for Estuardo Hernandes Diagnoses Drug-induced psychotic disorder F19.959 Paranoid delusion F22 Poison sasha dermatitis L23.7 Depressive disorder F32.9 Urinary tract infection N39.0 Amphetamine abuse F15.10
[2021-06-17] MEDS: OLANZapine 5 mg ODT PO (13:20)
[2021-06-17 14:00] VITALS: BP 105/68; PULSE 64; RESP 17; TEMP 36.8; O2SAT 98
--- NOTE | 2021-06-17 14:52 | PC.NURSE ---
prn 1320 administered Zyprexa Zydis 5mg pt c/o anxiety. will followup with pt.
[2021-06-17 22:00] VITALS: BP 108/79; PULSE 73; RESP 18; TEMP 36.6; O2SAT 96
[2021-06-17] MEDS: trazodone 50 mg Tablet PO (22:27)
[2021-06-17] MEDS: hyDROXYzine 25 mg Capsule 50 MG PO (22:28)
--- NOTE | 2021-06-17 22:35 | PC.NURSE ---
Trazodone and visteril given for sleep and anxiety.
[2021-06-18] MEDS: OLANZapine 5 mg ODT PO ×3 (00:29→21:47)
--- NOTE | 2021-06-18 00:35 | PC.NURSE ---
Zyprexa 5mg given for continued nightmares and psychosis.
[2021-06-18 06:00] VITALS: BP 108/72; PULSE 67; RESP 16; TEMP 36.6; O2SAT 98
[2021-06-18] MEDS: ARIPiprazole 10 mg Tablet 15 MG PO (08:51)
[2021-06-18] MEDS: citalopram 20 mg Tablet 10 MG PO (08:51)
--- NOTE | 2021-06-18 13:57 | P.PN_ITS ---
Subjective NPU Subjective: Interval history: The patient says she had the same dream again last night. She says she needs medication for sleeping. She said her mood is okay, and denies depression and worry. She gets agitated again about calling women's shelters. She says she does not like [id number] interaction, because it feels like a confrontation. He says that when she had to go to court, she felt that she would . Appetite is good. Energy is low. Motivation is fair. She denies medication side effects. Mental Status Exam MSE Comments: I met with the patient on the bench by the nurses station. She was initially cooperative and then became more suspicious and agitated. She had psychomotor agitation. Speech became rapid and loud. She was alert and oriented to person and situation. Attention became distractible. Memory was intact. Mood has been euthymic to agitated. Affect became agitated. Thought process is perseverative. Thought content: She has some paranoid ideas about staff at the [facility] knowing her boyfriend, entering her room, etc. She denies suicidal and homicidal ideation. She denies auditory and visual hallucinations. Insight and judgment continue to be impaired. Vitals/I&O/Wt Last Vital Signs Temp 98.4 F 06/18/21 20:48 Pulse 81 06/18/21 20:48 Resp 18 06/18/21 20:48 BP 126/73 06/18/21 20:48 Pulse Ox 99 06/18/21 20:48 Data NPU : 06/09/21 12:39 06/09/21 12:39 A&P Assessment and plan (1) Drug-induced psychotic disorder: Status: Acute (2) Paranoid delusion: Status: Acute (3) Depressive disorder: Status: Acute (4) Amphetamine abuse: Status: Acute (5) Poison sasha dermatitis: Status: Acute (6) Urinary tract infection: Status: Acute Additional A&P Information This is a 40-year-old white female with a long history of addiction and mental health issues who presents with paranoia and psychosis likely secondary to methamphetamine use with concerns for lethality. 1. Continue current medication. We will increase trazodone to 100 mg prn for sleep. We started Abilify Maintena 400 mg, to be given IM monthly. 2. Continue every 15 minute checks for safety. 3. Encourage individual, group and milieu therapies. 4. Encourage sober living treatment after discharge at the highest level of care to which he is willing to commit. She is in denial about methamphetamine use or its impact on her cognition. 5. Patient placed on 21-day given her limited improvement and continued hosti lity. Involuntary Hold Information 96 Hour Hold: 96 Hour Involuntary Admission: Yes 96 Hour Hold Ending Date: 05/04/21 96 Hour Hold Ending Time: 01:16 Attestations NPU Medical Necessity Statement*: Inpatient hospitalization is medically necessary and the clinically appropriate intervention at this time. We will monitor medications and make changes as indicated. Likely length of stay 2-4 days. Coding Level of Care Code Acute Bass String Winder for Estuardo Hernandes Diagnoses Drug-induced psychotic disorder F19.959 Paranoid delusion F22 Depressive disorder F32.9 Amphetamine abuse F15.10 Poison sasha dermatitis L23.7 Urinary tract infection N39.0
[2021-06-18 14:00] VITALS: BP 103/69; PULSE 74; RESP 18; TEMP 36.7; O2SAT 97
[2021-06-18 20:48] VITALS: BP 126/73; PULSE 81; RESP 18; TEMP 36.9; O2SAT 99
[2021-06-18] MEDS: acetaminophen 325 mg Tablet 650 MG PO (21:45)
[2021-06-18] MEDS: hyDROXYzine 25 mg Capsule 50 MG PO (21:46)
[2021-06-18] MEDS: trazodone 100 mg Tablet PO (21:47)
[2021-06-19 06:00] VITALS: BP 105/73; PULSE 60; RESP 18; TEMP 36.5; O2SAT 98
[2021-06-19] MEDS: citalopram 20 mg Tablet 10 MG PO (08:08)
[2021-06-19] MEDS: ARIPiprazole 10 mg Tablet 15 MG PO (08:09)
[2021-06-19 14:00] VITALS: BP 106/73; PULSE 90; RESP 17; TEMP 36.9; O2SAT 97
--- NOTE | 2021-06-19 15:23 | P.PN_ITS ---
Subjective NPU Subjective: Interval history: The patient describes her mood as pissed, and says she is bored. She feels hungry, which may be a side effect of the Abilify. She denies auditory and visual hallucinations. She denies suicidal and homicidal ideation. There is still evidence of paranoid ideation, thinking that others are out to get her. She also continues to exhibit inflexible thinking, having difficulty of understanding the situation she is in, the amount of time it takes, etc. She does not get as agitated today, however, about her placement. Mental Status Exam MSE Comments: I met with the patient in the day room. She was mostly cooperative with only a few moments of acting suspicious and agitated. She had psychomotor agitation. Speech was quieter, and had a regular rate and rhythm. She was alert and oriented to person and situation. Attention was improved. Memory was intact. Mood has improved, but she still does have periods of agitation. Affect was mostly pleasant. Thought process is inflexible and perseverative. Thought content: She has some paranoid ideas. She denies suicidal and homicidal ideation. She denies auditory and visual hallucinations. Insight and judgment continue to be limited. Vitals/I&O/Wt Last Vital Signs Temp 98.4 F 06/19/21 14:00 Pulse 90 06/19/21 14:00 Resp 17 06/19/21 14:00 BP 106/73 06/19/21 14:00 Pulse Ox 97 06/19/21 14:00 Weight last 48 hrs Weight 77.111 kg Data NPU : 06/09/21 12:39 06/09/21 12:39 A&P Assessment and plan (1) Drug-induced psychotic disorder: Status: Acute (2) Paranoid delusion: Status: Acute (3) Depressive disorder: Status: Acute (4) Amphetamine abuse: Status: Acute (5) Poison sasha dermatitis: Status: Acute (6) Urinary tract infection: Status: Acute Additional A&P Information This is a 40-year-old white female with a long history of addiction and mental health issues who presents with paranoia and psychosis likely secondary to methamphetamine use with concerns for lethality. 1. Continue current medication. We will increase trazodone to 150 mg prn for sleep. We started Abilify Maintena 400 mg, to be given IM monthly. 2. Continue every 15 minute checks for safety. 3. Encourage individual, group and milieu therapies. 4. Encourage sober living treatment after discharge at the highest level of care to which he is willing to commit. She is in denial about methamphetamine use or its impact on her cognition. 5. Patient placed on 21-day given her limited improvement and continued hostility. She has held it together much of the day today and most of y . If she continues to do well, we will begin discharge planning tomorrow. Involuntary Hold Information 96 Hour Hold: 96 Hour Involuntary Admission: Yes 96 Hour Hold Ending Date: 05/04/21 96 Hour Hold Ending Time: 01:16 Attestations NPU Medical Necessity Statement*: Inpatient hospitalization is medically necessary and the clinically appropriate intervention at this time. We will monitor medications and make changes as indicated. Likely length of stay 1-3 days. Coding Level of Care Code Acute Metalizing Machine Operator Automatic for Estuardo Hernandes Diagnoses Drug-induced psychotic disorder F19.959 Paranoid delusion F22 Depressive disorder F32.9 Amphetamine abuse F15.10 Poison sasha dermatitis L23.7 Urinary tract infection N39.0
[2021-06-19] MEDS: hyDROXYzine 25 mg Capsule 50 MG PO (16:47)
--- NOTE | 2021-06-19 16:47 | PC.NURSE ---
PRN VISTARIL 50 MG GIVEN PO PER PT C/O STATED ANXIETY. WILL CONT TO MONITOR FOR DESIRED MED EFFECTIVENESS.
[2021-06-19] MEDS: trazodone 150 mg Tablet PO (21:30)
[2021-06-19 22:00] VITALS: BP 116/77; PULSE 55; RESP 15; TEMP 36.8; O2SAT 97
[2021-06-19] MEDS: OLANZapine 5 mg ODT PO (22:32)
[2021-06-20 06:00] VITALS: BP 101/65; PULSE 57; RESP 15; TEMP 36.8; O2SAT 95
[2021-06-20] MEDS: ARIPiprazole 10 mg Tablet 15 MG PO (07:56)
[2021-06-20] MEDS: citalopram 20 mg Tablet 10 MG PO (07:57)
[2021-06-20 11:41] VITALS: BP 101/65; PULSE 57; RESP 15; TEMP 36.8; O2SAT 95
--- NOTE | 2021-06-20 11:46 | P.DS_ITS ---
Diagnoses at Discharge Discharge Diagnosis (1) Drug-induced psychotic disorder: Status: Acute (2) Paranoid delusion: Status: Acute (3) Depressive disorder: Status: Acute (4) Amphetamine abuse: Status: Acute (5) Poison sasha dermatitis: Status: Acute (6) Urinary tract infection: Status: Acute Reason for Visit Reason for Visit: BEHAVIORAL ISSUES/ PARANOID Brief History: Lexus oates is a 40 year old female who presented to the emergency department with the following report: History of Present Illness: HPI Narrative: 40-year-old female referred to the ER by [facility] with paranoid thoughts. She been living in the [facility]. Patient has been paranoid delusions. Patient believes someone has something on her phone. She also cites that someone is hacked her ability to buy things through the Internet and that this thing she orders are not really coming from where she orders but actually coming from where she orders (her description not mine). She is convinced that there are cameras everywhere watching her she is upset because [facility] properly [facility]. She reports she try to get away from some soft were somehow someone had bugged her phone by buying a new phone at [facility] but it had a SIM card and when she got it so she was convinced that already compromised the phone when she bought it. She has been admitted in the past for similar paranoid delusions. She was admitted to the neuropsychiatric unit for definitive treatment of those issues. She presents today reporting that she has been hospitalized maybe 3 times. She has not had significant follow-up recently. She does report that she been taking the medication is unclear whether that is true or not. Most of her answers to questions were none. When asked about what happened in the created her presentation here she said she had no when asked what her symptoms are she reported she just does not feel good. When I did review reports about her presentation she did confirm having significant paranoia. She is a poor historian however mostly. He was smoking cigarettes, denies alcohol significant 1 or any other illicit drug use other than methamphetamine but she did not characterize her level with the methenamine use. She reports that she is never been to rehab but she had a DUI in 2011. Otherwise she denied substantive changes since her last presentation here. The discharge summary from her last visit in April is included below for context. We did discuss the risk benefits alternatives of restarting her Celexa and adding Abilify to help with her current presents. Hospital Course Hospital Course The patient is a 40-year-old female referred to the ER by [facility] with paranoid thoughts. She was admitted to the neuropsychiatric unit for definitive treatment of these issues. On the unit she slowly acclimated to the individual, group and milieu therapies. At first she was quite angry when things didn't go the way she thought she should. She was started on Abilify 10 mg daily and then the dose was increased to 15 mg daily. Her psychotic symptoms gradually diminished, and her anger improved as well. She accepted Abilify Maintena and got a 400 mg injection, which is given every 28 days. She became receptive to treatment team recommendations, and showed an improvement in her frustration tolerance. She was able to contract for safety prior to discharge. During the hospitalization, patient had routine laboratory studies which were within normal limits except for few outliers. Additionally there was a general medical evaluation which was also within normal limits and revealed no new acute processes. Discharge Summary: At the time of discharge, psychosis and lethality were denied. Mood and anxiety were well managed. Patient endorsed a plan to avoid all drugs of abuse and follow-up with the aftercare recommendations of the treatment team. Patient was evaluated and deemed to be absent credible lethality, and had achieved the maximum benefit from an inpatient hospitalization, so was discharged. Involuntary Hold Information 96 Hour Hold: 96 Hour Involuntary Admission: Yes 96 Hour Hold Ending Date: 05/04/21 96 Hour Hold Ending Time: 01:16 Mental Status Exam MSE Comments: I met with the patient in the day room. She was cooperative and happy that we were discharging her today. No psychomotor agitation or retardation. Speech was at a normal volume, and had a regular rate and rhythm. She was alert and oriented to person and situation. Attention was improved. Memory was intact. Mood has improved, with no periods of agitation. Affect was mostly pleasant. Thought process is more flexible. Thought content: No paranoia observed todays. She denies suicidal and homicidal ideation. She denies auditory and visual hallucinations. Insight and judgment are improved. Discharge Data Vitals: Last Vital Signs Temp 98.2 F 06/20/21 11:41 Pulse 57 L 06/20/21 11:41 Resp 15 06/20/21 11:41 BP 101/65 06/20/21 11:41 Pulse Ox 95 06/20/21 11:41 Discharge Plan Discharge Patient Disposition: Home Condition: Stable Prescriptions: New aripiprazole 10 mg Tablet 15 mg PO DAILY 9 Days Qty: 9 RF: 0 trazodone 150 mg Tablet 150 mg PO BEDTIME 30 Days Qty: 30 RF: 0 Abilify Maintena 400 mg suspension,extended rel recon 400 mg IM Q28D Qty: 1 RF: 0 Continued citalopram 20 mg Tablet 10 mg PO DAILY 30 Days Qty: 30 RF: 0 Discharge Orders: Discharge Order (Routine); Ordered 06/20/21 Ordered By: René Huertas Referrals: [facility] [Outside] (You will have to go into [facility] and complete an initial assessment. Walk-in Tuesdays or 7:30am to 3pm.) Tyshawn Echeverria MD [Primary Care Provider] - 06/22/21 8:30 am Discharge Diet: Usual diet Discharge Activity: Resume usual activity Patient Instructions: Opioid Safety Discharge Attestations NPU Time Spent in Discharge Care*: less than 30 min Specific Discharge Activities: Specific discharge activities: educating patient, discussing with manager of case management/social workers/dc planners, documenting/other paperwork and evaluating patient/reviewing data Status at Discharge: Cognitive status at discharge: cognitively intact , Behavioral status at discharge: cooperative , Coding Level of Care Code Acute [facility] DC note Diagnoses Drug-induced psychotic disorder F19.959 Paranoid delusion F22 Depressive disorder F32.9 Amphetamine abuse F15.10 Poison sasha dermatitis L23.7 Urinary tract infection N39.0
== END 2021-06-20 14:31 | disposition home or self-care (01) | DRG 897 ==
LOC: ER 14:10 → NP 16:00
PROVIDERS: Admitting Provider Psychiatry & Neurology Psychiatry; Emergency Provider Family Medicine; PCP Family Medicine Adult Medicine; Visit Provider Psychiatry & Neurology Child & Adolescent Psychiatry
DX: F19.959 Other psychoactive substance use, unspecified with psychoactive substance-induced psychotic disorder, unspecified (principal); N39.0 Urinary tract infection, site not specified; F32.9 Major depressive disorder, single episode, unspecified; F22 Delusional disorders; F15.10 Other stimulant abuse, uncomplicated; L23.7 Allergic contact dermatitis due to plants, except food; F17.210 Nicotine dependence, cigarettes, uncomplicated; R45.1 Restlessness and agitation; E66.9 Obesity, unspecified; Z68.32 Body mass index [BMI] 32.0-32.9, adult
CPT/HCPCS: 80053; 80306; 80307; 81003; 85025; 96372; 99285; J1200; J1630; J2060